=== PATIENT | female | born 1970 | race Caucasian/White ===

== ENCOUNTER 2024-01-29 15:37 | Inpatient (IN) ==
[2024-01-29 16:37] LABS: Appearance Urine Clear (Clear); Bacteria Urine Automated None Seen (None Seen); Basophils # (auto) 0.05 K/uL (0.00-0.20); Basophils % (auto) 0.8 %; Bilirubin Urine Negative (Negative); Blood Urine Trace (Negative); Cast Urine Automated 0-2 /lpf (0-2); Color Urine Yellow; Eosinophils % (auto) 1.5 %; Epithelial Cell Urine Auto 0-2 /hpf (0-2); Glucose Urine UA Negative (Negative); Hematocrit (blood only) 46.9 % (37.0-47.0); Hemoglobin 15.9 g/dl (12.0-16.0); Immature Granulocytes # (auto) 0.01 K/uL (0.01-0.20); Immature Granulocytes % (auto) 0.2 %; Ketones Urine Negative (Negative); Leukocyte Esterase Urine Negative (Negative); Lymphocytes # (auto) 2.25 K/uL (1.20-3.40); Lymphocytes % (auto) 34.8 %; Mean Corpuscular Hemoglobin 30.7 pg (25.0-34.0); Mean Corpuscular Hgb Conc 33.9 g/dL (32.0-36.0); Mean Corpuscular Volume 90.5 fL (80.0-100.0); Mean Platelet Volume 10.5 fL (9.4-12.4); Monocytes # (auto) 0.32 K/uL (0.11-0.59); Monocytes % (auto) 4.9 %; Neutrophils # (auto) 3.74 K/uL (1.40-6.50); Neutrophils % (auto) 57.8 %; Nitrite Urine Negative (Negative); Platelet Count 340 K/uL (130-400); Protein Urine Negative (Negative); RBC Urine Automated 0-2 /hpf (0-2); RDW Coefficient of Variation 13.1 % (11.5-14.5); RDW Standard Deviation 43.8 fL (36.4-46.3); Red Blood Count 5.18 M/uL (4.20-5.40); Specific Gravity Urine 1.006 (1.000-1.030); Urobilinogen Urine Negative (Negative); WBC Urine Automated 0-5 /hpf (0-5); White Blood Count 6.47 K/ul (4.8-10.8); pH Urine 6.5 (4.5-7.5)
[2024-01-29] MEDS: MECLIZINE HCL 25 MG TAB PO STA (16:37)
[2024-01-29] MEDS: SODIUM CHLORIDE 0.9% 1,000 ML IV ONE (16:37)
[2024-01-29] MEDS: ONDANSETRON INJ 2 MG/ML 2 ML VIAL IV STA (16:37)
--- NOTE | 2024-01-29 16:38 | Emergency Department Note ---
Impression & Plan Dizziness, Weakness, Bradycardia ED Provider Note NAME: LILA MCCULLOUGH AGE: 53 SEX: F : 1970 ARRIVES VIA: Walk-In INFORMANT: [Patient] ED PROVIDER(S): [Deven Hoffman MD] CHIEF COMPLAINT: Dizziness HISTORY OF PRESENT ILLNESS: The patient is a 53-year-old female who has been in the ED recently for gastritis and esophagitis. She has felt dizzy for months, it seems to come and go. It is more of a lightheadedness than vertigo. She has noticed some occasional nausea, some hot and cold sensations, no vomiting. She had some diarrhea a few days ago but nothing has been persistent. She does feel diffusely weak, it is not a one-sided weakness. There has been no speech slur. The patient is currently wearing a heart monitor for bradycardia. The patient states that she was at her neurologist today. She was referred to the ER for a stroke workup. PMHx/PSHx/Social Hx: See Below PHYSICAL EXAM: GENERAL: Patient is in no acute distress. HEENT: No acute trauma, normocephalic atraumatic, mucous membranes moist, no nasal congestion. NECK: No stridor, no adenopathy, no meningismus, trachea is midline. LUNGS: Clear to auscultation bilaterally, no wheeze, no rhonchi, breath sounds equal. HEART: Without murmurs gallops or rubs, regular rate and rhythm. ABDOMEN: Soft, nontender, no peritonitis. EXTREMITIES: No cyanosis, full range of motion of all the joints without pain or difficulty. NEUROLOGIC: Oriented x 3, no acute motor or sensory deficits, no focal weakness. No speech slur or facial droop, no extremity drift. Excellent historian. SKIN: No jaundice, no diaphoresis. DIFFERENTIAL DIAGNOSIS: Dehydration, vertigo, anemia, electrolyte imbalance, TIA, CVA, UTI, among others. EMERGENCY DEPARTMENT PROCEDURES: MEDICAL DECISION MAKING: There is no leukocytosis or concerning anemia. There is a normal platelet count. No coagulopathy. No renal failure or significant electrolyte abnormality. No concerning liver enzyme elevation. ECG showed a sinus bradycardia, no dysrhythmia. Cardiac enzyme testing x 1 was not consistent with acute cardiac injury. Urinalysis did not show findings of infection. Brain CT showed no acute bleed or mass effect. A mastoid effusion was seen. CT angio of the head and neck did not show stenosis or clot. On exam, patient had no focal neurologic findings. She was bradycardic on cardiac monitoring. The patient received IV saline, she was given IV Zofran. She eventually received IV morphine for pain. She was given oral meclizine to see if this helped with some of her dizziness. She was given IV Tylenol. The patient presents with persistent dizziness. There was concern for a posterior circulation stroke as the cause for her trouble. She has been notably bradycardic and certainly, dysrhythmia could be causing her dizziness. With all of the issues, complaints and findings, I do think further workup in the hospital would be warranted. An MRI would be beneficial to further rule out CVA. Further cardiac monitoring would be helpful to rule out dysrhythmia. I did speak with the patient and case management, the on-call hospitalist was consulted. Prior/Outside records/notes reviewed: Previous ED visit notes describing her workup, findings and plan outpatient. ECG per my interpretation: Indication was possible CVA. The ECG shows a sinus bradycardia with a rate of 56. There is no acute ST elevation, no PVCs. The QTc is 405. Continuous Cardiac Monitoring per my interpretation: An order was placed for continuous cardiac monitoring. The monitor shows a rate of 55 with sinus bradycardia. Imaging/x-ray results per my interpretation: Chronic Medical/Social conditions affecting care: None Care/Management discussed with: Case management, the on-call hospitalist. Level of care consideration(s): After review of the information above and other included data: --I believe the patient requires escalation of care to admission DISPOSITION: Admission Past Med/Surg History Problem List (Updated 01/29/24 @ 22:43 by Deven Hoffman MD) Bradycardia (Acute) Weakness (Acute) Dizziness (Acute) Dizziness Dysphagia Constipation Abnormal CT of the abdomen Acute epigastric pain (Acute) Heart burn (Acute) Gastritis (Acute) Elevated serum hCG in female, not (Acute) Medical History Nausea after anesthesia Anxiety recently had chest pain end 07/2023, checked by and "no findings" GERD (gastroesophageal reflux disease) Surgical History Hx of hysterectomy 2011 Hx of colonoscopy Status post myringotomy with tube placement of both ears Hx of tonsillectomy Social History Smoking Status: Current every day smoker Tobacco Type: Cigarettes Cigarettes Per Day: 20/day; Second Hand Exposure: Yes; Do You Dip or Chew Tobacco: No; Tobacco Cessation Education Requested by Patient: No Hx Alcohol Use: No Hx Substance Use: No Preferred Language: Armenian Communication Ability: Effective End Polisher Required: No Beliefs That Will Affect Care: None Current Living Situation: Spouse and Family Other Information That Helps Us Care for You: No Feels Safe at Home: Yes Safety Concerns: Feels Safe At This Time Assistive Devices: Glasses Allergies Allergies Allergy/AdvReac Type Severity Reaction Status Date / Time No Known Allergies Allergy Verified 01/29/24 18:50 Home Meds Home Medications Medication Instructions Recorded Confirmed famotidine 40 mg tablet 40 mg PO BID PRN 12/12/23 01/29/24 HEARTBURN/INDIGESTION diazepam 5 mg tablet 2.5 mg PO BID PRN Anxiety 01/29/24 01/29/24 hydroxyzine HCl 10 mg tablet 10 mg PO Q6 PRN Anxiety 01/29/24 01/29/24 omeprazole 40 mg capsule,delayed 40 mg PO DAILY 01/29/24 01/29/24 release Results & Data (ED) Vital Signs Vital Signs - 24 hr 01/29/24 15:41 01/29/24 16:19 01/29/24 16:29 Temperature 36.3 C L Temperature Source Temporal Artery Scan Pulse Rate - Lying 60 Pulse Rate - Sitting 78 Pulse Rate - Standing 90 Pulse Rate 77 55 L Pulse Rate [Finger] Pulse Rhythm Regular Pulse Strength Normal Respiratory Rate 20 Respiratory Effort / Characteristics Non-Labored Spontaneous Respiratory Depth Normal Blood Pressure - Lying 154/93 H Blood Pressure - Sitting 158/86 H Blood Pressure- Standing 135/95 Blood Pressure 168/94 H Blood Pressure [Right Arm] Blood Pressure Mean 118 Blood Pressure Mean [Right Arm] Blood Pressure Position Sitting Pulse Oximetry 99 Oxygen Delivery Method Room Air Sepsis Recent Fever Within 48 Hours No Sepsis New/Unexplained Change in Mental Status N/A Sepsis Action Taken by Nursing No Action Required 01/29/24 17:00 01/29/24 19:00 Temperature Temperature Source Pulse Rate - Lying Pulse Rate - Sitting Pulse Rate - Standing Pulse Rate Pulse Rate [Finger] 56 L 75 Pulse Rhythm Pulse Strength Respiratory Rate 18 20 Respiratory Effort / Characteristics Respiratory Depth Blood Pressure - Lying Blood Pressure - Sitting Blood Pressure- Standing Blood Pressure Blood Pressure [Right Arm] 137/82 129/89 Blood Pressure Mean Blood Pressure Mean [Right Arm] 100 102 Blood Pressure Position Pulse Oximetry 98 95 Oxygen Delivery Method Room Air Room Air Sepsis Recent Fever Within 48 Hours Sepsis New/Unexplained Change in Mental Status Sepsis Action Taken by [facility] Medications Current Medication List: was personally reviewed by me Laboratory Data Attestation: I reviewed the patient's lab results. 01/29/24 16:00 01/29/24 16:00 Lab Results 01/29/24 Range/Units 16:00 WBC 6.47 (4.8-10.8) K/ul RBC 5.18 (4.20-5.40) M/uL Hgb 15.9 (12.0-16.0) g/dl Hct 46.9 (37.0-47.0) % MCV 90.5 (80.0-100.0) fL MCH 30.7 (25.0-34.0) pg MCHC 33.9 (32.0-36.0) g/dL RDW Std Deviation 43.8 (36.4-46.3) fL RDW Coeff of Rosita 13.1 (11.5-14.5) % Plt Count 340 (130-400) K/uL MPV 10.5 (9.4-12.4) fL Immature Gran % (Auto) 0.2 % Neut % (Auto) 57.8 % Lymph % (Auto) 34.8 % [place] % (Auto) 4.9 % Eos % (Auto) 1.5 % Baso % (Auto) 0.8 % Neut # (Auto) 3.74 (1.40-6.50) K/uL Lymph # (Auto) 2.25 (1.20-3.40) K/uL [place] # (Auto) 0.32 (0.11-0.59) K/uL Eos # (Auto) 0.10 (0.00-0.50) K/uL Baso # (Auto) 0.05 (0.00-0.20) K/uL Immature Gran # (Auto) 0.01 (0.01-0.20) K/uL PT 10.9 (9.0-12.0) Seconds INR 1.0 (0.9-1.1) APTT 29 (21-31) Seconds PTT Ratio 1.1 Sodium 139 (136-145) mmol/L Potassium 3.7 (3.5-5.1) mmol/L Chloride 103 (98-107) mmol/L Carbon Dioxide 27 (21-32) mmol/L Anion Gap 9 (3-11) BUN 8 (6-23) mg/dl Creatinine 0.83 (0.6-1.2) mg/dl Est Cr Clr Drug Dosing 73.1 ml/min Est GFR ( Amer) 92.7 ml/min Est GFR (Non-Af Amer) 79.9 ml/min BUN/Creatinine Ratio 9.6 L (10-20) Glucose 96 (70-99(Fasting)) mg/dl Calcium 10.3 (8.6-10.3) mg/dl Magnesium 2.1 (1.7-2.4) mg/dl Total Bilirubin 0.5 (0.2-1.0) mg/dl AST 18 (13-39) U/L ALT 15 (7-52) U/L Alkaline Phosphatase 81 (34-104) U/L Troponin I High Sens 4.3 (0-14) pg/ml Total Protein 8.0 (6.0-8.3) gm/dl Albumin 4.9 (3.4-5.0) gm/dl Globulin 3.1 (2.5-4.0) gm/dl Albumin/Globulin Ratio 1.6 (0.9-2) Urine Color Yellow Urine Appearance Clear (Clear) Urine pH 6.5 (4.5-7.5) Ur Specific [place] 1.006 (1.000-1.030) Urine Protein Negative (Negative) Urine Glucose (UA) Negative (Negative) Urine Ketones Negative (Negative) Urine Blood Trace H (Negative) Urine Nitrite Negative (Negative) Urine Bilirubin Negative (Negative) Urine Urobilinogen Negative (Negative) Ur Leukocyte Esterase Negative (Negative) Urine WBC (Auto) 0-5 (0-5) /hpf Urine RBC (Auto) 0-2 (0-2) /hpf U Hyaline Cast (Auto) 0-2 (0-2) /lpf U Epithel Cells (Auto) 0-2 (0-2) /hpf Urine Bacteria (Auto) None Seen (None Seen) Lyme Disease Screen Negative (Negative) Administered Medications Heparin Sodium (Porcine) (Heparin Sod 5,000 Unit/0.5 Ml Vial) 5,000 units SQ Q8 KIRSTEN Stop: 02/28/24 21:59 Last Admin: 01/29/24 22:36 Dose: 5,000 units Documented By: ALMA Sodium Chloride (Nss) 1,000 mls @ 80 mls/hr IV .[id number] KIRSTEN Stop: 01/30/24 09:10 Last Admin: 01/29/24 22:30 Dose: 80 mls/hr Documented By: ALMA Discontinued Medications Sodium Chloride (Nss) 1,000 mls @ 999 mls/hr IV .[id number] ONE Stop: 01/29/24 17:24 Last Infusion: 01/29/24 19:25 Dose: Infused Documented By: Admin: 01/29/24 16:37 Dose: 999 mls/hr Documented By: JANETTE Acetaminophen (Ofirmev) 1,000 mg in 100 mls @ 400 mls/hr IV NOW STA Stop: 01/29/24 19:39 Last Infusion: 01/29/24 20:07 Dose: Infused Documented By: Admin: 01/29/24 19:47 Dose: 400 mls/hr Documented By: JANETTE Ioversol (Optiray 320 125ml) 106 ml IV ONCE ONE Stop: 01/29/24 17:25 Last Admin: 01/29/24 17:24 Dose: 106 ml Documented By: SARA Meclizine HCl (Meclizine Hcl 25 Mg Tab) 25 mg PO NOW STA Stop: 01/29/24 16:25 Last Admin: 01/29/24 16:37 Dose: 25 mg Documented By: JANETTE Morphine Sulfate (Morphine Sulfate 2 Mg/Ml Carp) 2 mg IV NOW STA Stop: 01/29/24 19:26 Last Admin: 01/29/24 20:40 Dose: Not Given Documented By: ALMA Ondansetron HCl (Ondansetron Inj 2 Mg/Ml 2 Ml Vial) 4 mg IV NOW STA Stop: 01/29/24 16:25 Last Admin: 01/29/24 16:37 Dose: 4 mg Documented By: JANETTE Imaging Data Radiologist's Impression: Head CT 01/29/24 16:[address] DOSE: HISTORY: Dizziness. neuro deficit, acute stroke suspected TECHNIQUE: Multiaxial CT images of the head were performed without the use of intravenous contrast. Automated exposure control was utilized for this study. A dose lowering technique was utilized adhering to the principles of ALARA. Comparison: Head CT 01/01/2024. Findings: Stable chronic right mastoid effusion. The paranasal sinuses and left mastoid air cells are clear. The calvarium and skull base are intact. The ventricles and sulci are within normal limits. There is no mass, hematoma, midline shift, or acute infarct. Impression: No acute intracranial abnormality. Stable chronic right mastoid effusion. ACT 112: Negative or not required by law. Electronically signed by: Zafar March M.D. 01/29/2024 6:02 PM Head CTA 01/29/24 16:24 HEAD & NECK CTA HISTORY: Dizziness neuro deficit, acute stroke suspected TECHNIQUE: Multiaxial CT images of the head were performed following the intravenous administration of contrast to evaluate the major cerebral vessels. Multiaxial CT images of the neck were also performed following the intravenous administration of contrast to evaluate the major cervical vessels. 3D/MIP images were also obtained. Sagittal and coronal reformats were reviewed. A dose lowering technique was utilized adhering to the principles of ALARA. COMPARISON: Head CT 01/29/2024. CT neck 10/08/2023. FINDINGS: There is no mass, hematoma, midline shift, or acute infarct. Visualized intracranial internal carotid arteries, distal vertebral arteries, and basilar artery are widely patent. There is no significant stenosis, occlusion, or aneurysm seen within the bilateral ACAs, MCAs, or incident response manager. . The major dural venous sinuses are patent. The aortic arch and proximal great vessels are widely patent. There is no significant stenosis, occlusion, or dissection identified within the bilateral common carotid, internal carotid, or vertebral arteries. Stable 4.8 cm cystic structure within the right superior mediastinum. IMPRESSION: 1. No significant stenosis, occlusion, or aneurysm within the [place]. 2. No significant stenosis, occlusion, or dissection identified within the carotid or vertebral arteries.. 3. Stable 4.8 cm cystic structure within the right superior mediastinum. ACT 112: Negative or not required by law. Electronically signed by: Zafar March M.D. 01/29/2024 6:10 PM Neck CTA 01/29/24 16:24 HEAD & NECK CTA HISTORY: Dizziness neuro deficit, acute stroke suspected TECHNIQUE: Multiaxial CT images of the head were performed following the intravenous administration of contrast to evaluate the major cerebral vessels. Multiaxial CT images of the neck were also performed following the intravenous administration of contrast to evaluate the major cervical vessels. 3D/MIP images were also obtained. Sagittal and coronal reformats were reviewed. A dose lowering technique was utilized adhering to the principles of ALARA. COMPARISON: Head CT 01/29/2024. CT neck 10/08/2023. FINDINGS: There is no mass, hematoma, midline shift, or acute infarct. Visualized intracranial internal carotid arteries, distal vertebral arteries, and basilar artery are widely patent. There is no significant stenosis, occlusion, or aneurysm seen within the bilateral ACAs, MCAs, or incident response manager. . The major dural venous sinuses are patent. The aortic arch and proximal great vessels are widely patent. There is no significant stenosis, occlusion, or dissection identified within the bilateral common carotid, internal carotid, or vertebral arteries. Stable 4.8 cm cystic structure within the right superior mediastinum. IMPRESSION: 1. No significant stenosis, occlusion, or aneurysm within the [place]. 2. No significant stenosis, occlusion, or dissection identified within the carotid or vertebral arteries.. 3. Stable 4.8 cm cystic structure within the right superior mediastinum. ACT 112: Negative or not required by law. Electronically signed by: Zafar March M.D. 01/29/2024 6:10 PM Discharge Plan Visit Data Chief Complaint: Dizziness Stated Complaint: DIZZY, NECK PAIN, TEMP ISSUES, WEAK, REF BY DOC ED Provider: Deven Hoffman Discharge Problem: Dizziness, Weakness, Bradycardia Patient Disposition: Admitted As Inpatient Condition: Fair Discharge Instructions Interventions: ED Discharge Assessment Last Done: 01/29/24 20:05
[2024-01-29 16:57] LABS: Albumin Globulin Ratio 1.6 (0.9-2); Albumin Level 4.9 gm/dl (3.4-5.0); BUN Creatinine Ratio 9.6 (10-20); Bilirubin,Total 0.5 mg/dl (0.2-1.0); Calcium 10.3 mg/dl (8.6-10.3); Creatinine Clr Calc Pharmacy 73.1 ml/min; Est GFR (African American) 92.7 ml/min; Est GFR (Non-African American) 79.9 ml/min; Globulin 3.1 gm/dl (2.5-4.0); Magnesium 2.1 mg/dl (1.7-2.4); Potassium 3.7 mmol/L (3.5-5.1)
[2024-01-29 17:03] LABS: Troponin I High Sensitivity 4.3 pg/ml (0-14)
[2024-01-29] MEDS: OPTIRAY 320 125ml IV ONE (17:24)
[2024-01-29 17:44] LABS: Partial Thromboplastin Ratio 1.1; Partial Thromboplastin Time 29 Seconds (21-31); Prothrombin Time 10.9 Seconds (9.0-12.0)
--- NOTE | 2024-01-29 18:04 | CT Scan Report ---
HEAD CT NONCONTRAST CT DOSE: HISTORY: Dizziness. neuro deficit, acute stroke suspected TECHNIQUE: Multiaxial CT images of the head were performed without the use of intravenous contrast. A utomated exposure control was utilized for this study. A dose lowering technique was utilized adheri ng to the principles of ALARA. Comparison: Head CT 01/01/2024. Findings: Stable chronic right mastoid effusion. The paranasal sinuses and left mastoid air cells are clear. The calvarium and skull base are intact. The ventricles and sulci are within normal limits. T here is no mass, hematoma, midline shift, or acute infarct. Impression: No acute intracranial abnormality. Stable chronic right mastoid effusion. ACT 112: Negative or not required by law. Electronically signed by: Zafar March M.D. 01/29/2024 6:02 PM
--- NOTE | 2024-01-29 18:12 | CT Scan Report ---
HEAD & NECK CTA HISTORY: Dizziness neuro deficit, acute stroke suspected TECHNIQUE: Multiaxial CT images of the head were performed following the intravenous administration o f contrast to evaluate the major cerebral vessels. Multiaxial CT images of the neck were also perform ed following the intravenous administration of contrast to evaluate the major cervical vessels. 3D/PR P images were also obtained. Sagittal and coronal reformats were reviewed. A dose lowering technique was utilized adhering to the principles of ALARA. COMPARISON: Head CT 01/29/2024. CT neck 10/08/2023. FINDINGS: There is no mass, hematoma, midline shift, or acute infarct. Visualized intracranial internal carotid arteries, distal vertebral arteries, and basilar artery are widely patent. There is no significant s tenosis, occlusion, or aneurysm seen within the bilateral ACAs, MCAs, or director of trauma. . The major dural veno us sinuses are patent. The aortic arch and proximal great vessels are widely patent. There is no significant stenosis, occ lusion, or dissection identified within the bilateral common carotid, internal carotid, or vertebral arteries. Stable 4.8 cm cystic structure within the right superior mediastinum. IMPRESSION: 1. No significant stenosis, occlusion, or aneurysm within the [place]. 2. No significant stenosis, occlusion, or dissection identified within the carotid or vertebral arter ies.. 3. Stable 4.8 cm cystic structure within the right superior mediastinum. ACT 112: Negative or not required by law. Electronically signed by: Zafar March M.D. 01/29/2024 6:10 PM
--- NOTE | 2024-01-29 18:12 | CT Scan Report ---
HEAD & NECK CTA HISTORY: Dizziness neuro deficit, acute stroke suspected TECHNIQUE: Multiaxial CT images of the head were performed following the intravenous administration o f contrast to evaluate the major cerebral vessels. Multiaxial CT images of the neck were also perform ed following the intravenous administration of contrast to evaluate the major cervical vessels. 3D/DE P images were also obtained. Sagittal and coronal reformats were reviewed. A dose lowering technique was utilized adhering to the principles of ALARA. COMPARISON: Head CT 01/29/2024. CT neck 10/08/2023. FINDINGS: There is no mass, hematoma, midline shift, or acute infarct. Visualized intracranial internal carotid arteries, distal vertebral arteries, and basilar artery are widely patent. There is no significant s tenosis, occlusion, or aneurysm seen within the bilateral ACAs, MCAs, or laborer car barn. . The major dural veno us sinuses are patent. The aortic arch and proximal great vessels are widely patent. There is no significant stenosis, occ lusion, or dissection identified within the bilateral common carotid, internal carotid, or vertebral arteries. Stable 4.8 cm cystic structure within the right superior mediastinum. IMPRESSION: 1. No significant stenosis, occlusion, or aneurysm within the [place]. 2. No significant stenosis, occlusion, or dissection identified within the carotid or vertebral arter ies.. 3. Stable 4.8 cm cystic structure within the right superior mediastinum. ACT 112: Negative or not required by law. Electronically signed by: Zafar March M.D. 01/29/2024 6:10 PM
[2024-01-29] MEDS: ACETAMINOPHEN 1,000 MG/100 ML VIAL IV STA (19:47)
[2024-01-29] MEDS: MoRPHine SULFATE 2 MG/ML CARP IV STA (20:40)
[2024-01-29] MEDS ORDERED: PHARMACIST DISCHARGE MED REC CONSULT PRN (20:41)
[2024-01-29] MEDS ORDERED: POLYETHYLENE (MIRALAX) 17 GM PACK PO PRN (20:41)
--- NOTE | 2024-01-29 21:51 | History & Physical Report ---
Date of Service January 29, 2024 Assessment & Plan (1) Dizziness: Plan: 53-year-old female with past medical significant for bradycardia, mediastinal mass, GERD, colitis, chronic gastritis, squamous cell carcinoma face, neck pain, tobacco use, generalized anxiety disorder, ongoing dizziness was seen by neurology today and was advised for stroke workup. Patient states she is having on and off dizziness since last July. And also seeing some black spots on the right peripheral vision for several weeks. On and off headaches. Today headache is somewhat more severe. Has some nausea. Lost about 40 pounds in the last several months. Ambulates okay. No fevers. No runny nose or sore throat. States left ear has fluid. Has heartburn symptoms. Seems CT scan done recently showed colitis and was seen by GI few days back. GI is planning to do EGD and colonoscopy. Currently no abdominal pain. She had diarrhea but that got resolved today. No blood in the stools. Normal bladder movements. She also noted to have bradycardia and she has Zio patch placed. She also feeling hot and cold symptoms. Has chronic neck pain. Today she felt [id number] in left shoulder and left arm. Dizziness On and off going on for several months Saw neurology today recommended stroke workup and also possible LP CT head and CTA head and neck unremarkable MRI brain ordered Neurochecks Speech evaluation PT OT Telemetry Neuroconsulted and further recommendations Bradycardia Patient has Zio patch on which patient took off for MRI Will follow echo Will follow Lyme screen Telemetry Cardiology consult in a.m. Colitis Weight loss Plan for EGD and colonoscopy per GI Right mastoid effusion Will consult ENT Gastritis On omeprazole. Anxiety Diazepam as needed. Visual disturbance right eye peripheral vison MRI scan ok followup Neck pain Mri cervical spine Mild degenerative changes DVT prophylaxis Heparin subcu Disposition Telemetry Full code. Admission and Anticipated Discharge Date Admission Date: January 29, 2024 History of Present Illness Chief Complaint: Dizziness Primary Care Provider: MELANIE Angel 53-year-old female with past medical significant for bradycardia, mediastinal mass, GERD, colitis, chronic gastritis, squamous cell carcinoma face, neck pain, tobacco use, generalized anxiety disorder, ongoing dizziness was seen by neurology today and was advised for stroke workup. Patient states she is having on and off dizziness since last July. And also seeing some black spots on the right peripheral vision for several weeks. On and off headaches. Today headache is somewhat more severe. Has some nausea. Lost about 40 pounds in the last several months. Ambulates okay. No fevers. No runny nose or sore throat. States right ear has fluid. Has heartburn symptoms. Seems CT scan done recently showed colitis and was seen by GI few days back. GI is planning to do EGD and colonoscopy. Currently no abdominal pain. She had diarrhea but that got resolved today. No blood in the stools. Normal bladder movements. She also noted to have bradycardia and she has Zio patch placed. She also feeling hot and cold symptoms. Has chronic neck pain. Today she felt avuc-ofl-hecperl in left shoulder and left arm. Past medical history. As mentioned above. Past surgical history. Vaginal hysterectomy. Social history. . Smokes 0.8 packs a day for last 39 years no alcohol's. No drug use currently. Family history. Maternal grandfather had stroke. Mother had stroke. Allergies Allergy/AdvReac Type Severity Reaction Status Date / Time No Known Allergies Allergy Verified 01/29/24 18:50 Home Medications Medication Instructions Recorded Confirmed Type famotidine 40 mg tablet 40 mg PO BID PRN 12/12/23 01/29/24 History HEARTBURN/INDIGESTION diazepam 5 mg tablet 2.5 mg PO BID PRN Anxiety 01/29/24 01/29/24 History hydroxyzine HCl 10 mg tablet 10 mg PO Q6 PRN Anxiety 01/29/24 01/29/24 History omeprazole 40 mg capsule,delayed 40 mg PO DAILY 01/29/24 01/29/24 History release Past Med/Surg History Problem List (Updated 01/29/24 @ 22:43 by Deven Hoffman MD) Bradycardia (Acute) Weakness (Acute) Dizziness (Acute) Dizziness Dysphagia Constipation Abnormal CT of the abdomen Acute epigastric pain (Acute) Heart burn (Acute) Gastritis (Acute) Elevated serum hCG in female, not (Acute) Medical History Nausea after anesthesia Anxiety recently had chest pain end 07/2023, checked by and "no findings" GERD (gastroesophageal reflux disease) Surgical History Hx of hysterectomy 2011 Hx of colonoscopy Status post myringotomy with tube placement of both ears Hx of tonsillectomy Social History Smoking Status: Current every day smoker Tobacco Type: Cigarettes Cigarettes Per Day: 20/day; Second Hand Exposure: Yes; Do You Dip or Chew Tobacco: No; Tobacco Cessation Education Requested by Patient: No Hx Alcohol Use: No Hx Substance Use: No Preferred Language: [place] Communication Ability: Effective Plush Weaver Required: No Beliefs That Will Affect Care: None Current Living Situation: Spouse and Family Other Information That Helps Us Care for You: No Feels Safe at Home: Yes Safety Concerns: Feels Safe At This Time Assistive Devices: Glasses Review of Systems Review of Systems: All systems reviewed & are unremarkable except as noted in HPI & below Physical Exam Physical Exam: General-Not in distress Head- atraumatic Eyes- PERRL, EOMI, anicteric ENT- oropharynx clear Neck- supple, no JVD Lungs- clear to auscultation no wheezing or crackles Heart- regular rhythm bradycardia ; no murmur. Abdomen- normal bowel sounds, soft, nontender, no distension Extremities- pretibial edema present, no obvious erythema seen. Neuro- alert, oriented PERRL,no facial palsy; no dysarthria; motor 5/5 bilaterally; no pronator drift, co ordination of movements normal, sensations and position sense intact. Skin- warm & dry Results & Data Results & Data Vital Signs (Past 12 Hours) Vital Signs Temp Pulse Pulse Resp BP BP Pulse Ox 01/29/24 20:44 36.8 C 50 L 18 136/79 98 01/29/24 19:00 75 20 129/89 95 01/29/24 17:00 56 L 18 137/82 98 01/29/24 16:19 55 L 01/29/24 15:41 36.3 C L 77 20 168/94 H 99 O2 Del Method 01/29/24 20:44 Room Air 01/29/24 19:00 Room Air 01/29/24 17:00 Room Air 01/29/24 16:19 01/29/24 15:41 Room Air Diagnostic Findings Laboratory Results WBC 6.47 K/ul (4.8-10.8) 01/29/24 16:00 RBC 5.18 M/uL (4.20-5.40) 01/29/24 16:00 Hgb 15.9 g/dl (12.0-16.0) 01/29/24 16:00 Hct 46.9 % (37.0-47.0) 01/29/24 16:00 MCV 90.5 fL (80.0-100.0) 01/29/24 16:00 MCH 30.7 pg (25.0-34.0) 01/29/24 16:00 MCHC 33.9 g/dL (32.0-36.0) 01/29/24 16:00 RDW Std Deviation 43.8 fL (36.4-46.3) 01/29/24 16:00 RDW Coeff of Rosita 13.1 % (11.5-14.5) 01/29/24 16:00 Plt Count 340 K/uL (130-400) 01/29/24 16:00 MPV 10.5 fL (9.4-12.4) 01/29/24 16:00 Immature Gran % (Auto) 0.2 % 01/29/24 16:00 Neut % (Auto) 57.8 % 01/29/24 16:00 Lymph % (Auto) 34.8 % 01/29/24 16:00 [place] % (Auto) 4.9 % 01/29/24 16:00 Eos % (Auto) 1.5 % 01/29/24 16:00 Baso % (Auto) 0.8 % 01/29/24 16:00 Neut # (Auto) 3.74 K/uL (1.40-6.50) 01/29/24 16:00 Lymph # (Auto) 2.25 K/uL (1.20-3.40) 01/29/24 16:00 [place] # (Auto) 0.32 K/uL (0.11-0.59) 01/29/24 16:00 Eos # (Auto) 0.10 K/uL (0.00-0.50) 01/29/24 16:00 Baso # (Auto) 0.05 K/uL (0.00-0.20) 01/29/24 16:00 Immature Gran # (Auto) 0.01 K/uL (0.01-0.20) 01/29/24 16:00 PT 10.9 Seconds (9.0-12.0) 01/29/24 16:00 INR 1.0 (0.9-1.1) 01/29/24 16:00 APTT 29 Seconds (21-31) 01/29/24 16:00 PTT Ratio 1.1 01/29/24 16:00 Sodium 139 mmol/L (136-145) 01/29/24 16:00 Potassium 3.7 mmol/L (3.5-5.1) 01/29/24 16:00 Chloride 103 mmol/L (98-107) 01/29/24 16:00 Carbon Dioxide 27 mmol/L (21-32) 01/29/24 16:00 Anion Gap 9 (3-11) 01/29/24 16:00 BUN 8 mg/dl (6-23) 01/29/24 16:00 Creatinine 0.83 mg/dl (0.6-1.2) 01/29/24 16:00 Est Cr Clr Drug Dosing 73.1 ml/min 01/29/24 16:00 Est GFR ( Amer) 92.7 ml/min 01/29/24 16:00 Est GFR (Non-Af Amer) 79.9 ml/min 01/29/24 16:00 BUN/Creatinine Ratio 9.6 (10-20) L 01/29/24 16:00 Glucose 96 mg/dl (70-99(Fasting)) 01/29/24 16:00 Calcium 10.3 mg/dl (8.6-10.3) 01/29/24 16:00 Magnesium 2.1 mg/dl (1.7-2.4) 01/29/24 16:00 Total Bilirubin 0.5 mg/dl (0.2-1.0) 01/29/24 16:00 AST 18 U/L (13-39) 01/29/24 16:00 ALT 15 U/L (7-52) 01/29/24 16:00 Alkaline Phosphatase 81 U/L (34-104) 01/29/24 16:00 Troponin I High Sens 4.3 pg/ml (0-14) 01/29/24 16:00 Total Protein 8.0 gm/dl (6.0-8.3) 01/29/24 16:00 Albumin 4.9 gm/dl (3.4-5.0) 01/29/24 16:00 Globulin 3.1 gm/dl (2.5-4.0) 01/29/24 16:00 Albumin/Globulin Ratio 1.6 (0.9-2) 01/29/24 16:00 Urine Color Yellow 01/29/24 16:00 Urine Appearance Clear (Clear) 01/29/24 16:00 Urine pH 6.5 (4.5-7.5) 01/29/24 16:00 Ur Specific [place] 1.006 (1.000-1.030) 01/29/24 16:00 Urine Protein Negative (Negative) 01/29/24 16:00 Urine Glucose (UA) Negative (Negative) 01/29/24 16:00 Urine Ketones Negative (Negative) 01/29/24 16:00 Urine Blood Trace (Negative) H 01/29/24 16:00 Urine Nitrite Negative (Negative) 01/29/24 16:00 Urine Bilirubin Negative (Negative) 01/29/24 16:00 Urine Urobilinogen Negative (Negative) 01/29/24 16:00 Ur Leukocyte Esterase Negative (Negative) 01/29/24 16:00 Urine WBC (Auto) 0-5 /hpf (0-5) 01/29/24 16:00 Urine RBC (Auto) 0-2 /hpf (0-2) 01/29/24 16:00 U Hyaline Cast (Auto) 0-2 /lpf (0-2) 01/29/24 16:00 U Epithel Cells (Auto) 0-2 /hpf (0-2) 01/29/24 16:00 Urine Bacteria (Auto) None Seen (None Seen) 01/29/24 16:00 Lyme Disease Screen Negative (Negative) 01/29/24 16:[address] 01/29/24 16:[address] DOSE: HISTORY: Dizziness. neuro deficit, acute stroke suspected TECHNIQUE: Multiaxial CT images of the head were performed without the use of intravenous contrast. Automated exposure control was utilized for this study. A dose lowering technique was utilized adhering to the principles of ALARA. Comparison: Head CT 01/01/2024. Findings: Stable chronic right mastoid effusion. The paranasal sinuses and left mastoid air cells are clear. The calvarium and skull base are intact. The ventricles and sulci are within normal limits. There is no mass, hematoma, midline shift, or acute infarct. Impression: No acute intracranial abnormality. Stable chronic right mastoid effusion. ACT 112: Negative or not required by law. Electronically signed by: Zafar March M.D. 01/29/2024 6:02 PM Head CTA 01/29/24 16:24 HEAD & NECK CTA HISTORY: Dizziness neuro deficit, acute stroke suspected TECHNIQUE: Multiaxial CT images of the head were performed following the intravenous administration of contrast to evaluate the major cerebral vessels. Multiaxial CT images of the neck were also performed following the intravenous administration of contrast to evaluate the major cervical vessels. 3D/MIP images were also obtained. Sagittal and coronal reformats were reviewed. A dose lowering technique was utilized adhering to the principles of ALARA. COMPARISON: Head CT 01/29/2024. CT neck 10/08/2023. FINDINGS: There is no mass, hematoma, midline shift, or acute infarct. Visualized intracranial internal carotid arteries, distal vertebral arteries, and basilar artery are widely patent. There is no significant stenosis, occlusion, or aneurysm seen within the bilateral ACAs, MCAs, or bakery decorator. . The major dural venous sinuses are patent. The aortic arch and proximal great vessels are widely patent. There is no significant stenosis, occlusion, or dissection identified within the bilateral common carotid, internal carotid, or vertebral arteries. Stable 4.8 cm cystic structure within the right superior mediastinum. IMPRESSION: 1. No significant stenosis, occlusion, or aneurysm within the [place]. 2. No significant stenosis, occlusion, or dissection identified within the carotid or vertebral arteries.. 3. Stable 4.8 cm cystic structure within the right superior mediastinum. ACT 112: Negative or not required by law. Electronically signed by: Zafar March M.D. 01/29/2024 6:10 PM Neck CTA 01/29/24 16:24 HEAD & NECK CTA HISTORY: Dizziness neuro deficit, acute stroke suspected TECHNIQUE: Multiaxial CT images of the head were performed following the intravenous administration of contrast to evaluate the major cerebral vessels. Multiaxial CT images of the neck were also performed following the intravenous administration of contrast to evaluate the major cervical vessels. 3D/MIP images were also obtained. Sagittal and coronal reformats were reviewed. A dose lowering technique was utilized adhering to the principles of ALARA. COMPARISON: Head CT 01/29/2024. CT neck 10/08/2023. FINDINGS: There is no mass, hematoma, midline shift, or acute infarct. Visualized intracranial internal carotid arteries, distal vertebral arteries, and basilar artery are widely patent. There is no significant stenosis, occlusion, or aneurysm seen within the bilateral ACAs, MCAs, or bakery decorator. . The major dural venous sinuses are patent. The aortic arch and proximal great vessels are widely patent. There is no significant stenosis, occlusion, or dissection identified within the bilateral common carotid, internal carotid, or vertebral arteries. Stable 4.8 cm cystic structure within the right superior mediastinum. IMPRESSION: 1. No significant stenosis, occlusion, or aneurysm within the [place]. 2. No significant stenosis, occlusion, or dissection identified within the carotid or vertebral arteries.. 3. Stable 4.8 cm cystic structure within the right superior mediastinum. ACT 112: Negative or not required by law. Electronically signed by: Zafar Marhc M.D. 01/29/2024 6:10 PM ECG Additional Comments: ECG. Sinus bradycardia rate of 56. No significant change was found. Code Status & VTE Plan VTE Prophylaxis Plan VTE Prophylaxis will be ordered: Yes
[2024-01-29] MEDS: SODIUM CHLORIDE 0.9% 1,000 ML IV SCH (22:30)
[2024-01-29] MEDS: HEPARIN SOD 5,000 UNIT/0.5 ML VIAL SQ SCH (22:36)
--- NOTE | 2024-01-30 01:16 | Magnetic Resonance Report ---
Exam(s): MRI HEAD Without Contrast EXAM: MR Head Without Intravenous Contrast CLINICAL HISTORY: dizziness. cva?. TECHNIQUE: Magnetic resonance images of the head/brain without intravenous contrast in multiple planes. COMPARISON: CT Brain 01-29-2024. FINDINGS: Brain: Age-appropriate central and peripheral atrophy. No acute stroke. No focal parenchymal abnormality. No acute hemorrhage. No abnormal extra-axial fluid collection. Minimal scattered supratentorial white matter subcortical and periventricular hyperintensities on FLAIR and T2-weighted images. Ventricles: No midline shift. No ventriculomegaly. Bones/joints: Unremarkable. No acute fracture. Sinuses: Unremarkable as visualized. No acute sinusitis. Mastoid air cells: Right mastoid fluid. Orbits: Unremarkable as visualized. IMPRESSION: No acute stroke or hemorrhage.. Minimal non-specific white matter changes, most commonly seen with small vessel disease. Redemonstrated right mastoid fluid. Electronically signed by: Kailash Griggs M.D. 01/30/24 01:15 AM
--- NOTE | 2024-01-30 01:20 | Magnetic Resonance Report ---
Exam(s): MRI C SPINE EXAM: MR Cervical Spine Without Intravenous Contrast CLINICAL HISTORY: severe neck pain. TECHNIQUE: Magnetic resonance images of the cervical spine without intravenous contrast in multiple planes. COMPARISON: CTA neck 01/29/2024. FINDINGS: Vertebrae: Maintenance of height of the vertebral bodies. No subluxation. Mild endplate hypertrophic changes at C5-6 with minimal marrow changes. Marrow signal intensity within normal limits. No evidence for fracture. Spinal cord: Caliber and signal intensity of the cervical cord within normal limits. No intraspinal hematoma or collection. Soft tissues: Prevertebral soft tissues are unremarkable. DISCS/SPINAL CANAL/NEURAL FORAMINA: C2-C3: Unremarkable. No significant disc disease. No stenosis. C3-C4: Unremarkable. No significant disc disease. No stenosis. C4-C5: Unremarkable. No significant disc disease. No stenosis. C5-C6: Mild central posterior disc bulge with mild effacement of the ventral thecal sac. Mild central canal stenosis. No neural foraminal stenosis. C6-C7: Mild diffuse posterior disc bulge with mild effacement of the ventral thecal sac with mild central canal stenosis. No neural foraminal stenosis. C7-T1: Unremarkable. No significant disc disease. No stenosis. IMPRESSION: Mild disc degenerative changes at C5-6 and C6-7 as described above. No neural foraminal stenosis. Electronically signed by: Kailash Griggs M.D. 01/30/24 01:19 AM
--- OUTSIDE RECORDS SUMMARY | 2024-01-30 03:37 | External Medical Summary | Summary of Care ---
Author Name Unknown Organization [facility] Address [address] [place] [address] Phone [phone] Care Team Providers Care Supreme Court Judge Name Role Phone Shahla Xiong Primary Care Provider Reason for Visit * Reason Onset Date Comments Referral 01/25/2024 Encounter Details Date Type Department Care Team (Late st Contact Info) Description 01/25/2024 Telephone Family Practice [facility] [address] [facility] [place] [address] Shahla Xiong CRNP [address] [facility] [address] Referral Allergies No known active allergiesdocumented as of this encounter (statuses as of 01/26/2024) Medications Medication Sig Dispensed Refills Start Date End Date Status Escitalopram Oxalate 5 MG Oral Tablet (Lexapro) Take 1 Tablet by mouth in the morning. 30 Tablet 1 01/02/2024 Active hydrOXYzine HCl 10 MG Oral Tablet (Atarax) Take 1 Tablet by mouth every 6 hours as needed for Anxiety. 90 Tablet 01/11/2024 Active Omeprazole 40 MG Oral Capsule Delayed Release (PriLOSEC) Take 1 Capsule by mouth in the morning. 1 hour before the first meal of the day. 30 Capsule 1 01/23/2024 Active Famotidine 10 MG Oral Tablet (Pepcid) Take 1 Tablet by mouth in the morning and 1 Tablet before bedtime. Active documented as of this encounter (statuses as of 01/26/2024) Active Problems Problem Noted Date Diagnosed Date Bradycardia 01/25/2024 Colitis 01/25/2024 Chronic gastritis without bleeding 01/25/2024 Dizziness 01/25/2024 Neck pain 01/25/2024 Gastroesophageal reflux disease without esophagi tis 01/02/2024 BEBETO (generalized anxiety disorder) 01/02/2024 Squamous cell carcinoma, face 01/02/2024 Mediastinal mass 10/17/2023 Tobacco use 10/17/2023 documented as of this encounter (statuses as of 01/26/2024) Social History Tobacco Use Types Packs/Day Years Used Date Smoking Tobacco: Every Day Cigarettes 0.8 39.4 Started: 09/17/1984 Smokeless Tobacco: Never Alcohol Use Standard Drinks/Week Comments Not Currently 0 (1 standard drink = 0.6 oz pur e alcohol) Hunger Vital Sign Answer Date Recorded Within the past 12 months, y ou worried that your food would run out before you got the money to buy more. Never true 12/19/19 24 Within the past 12 months, t he food you bought just didn't last and you didn't have money to get more. Never true 12/19/2023 Childcare Answer Date Recorded Do you feel overwhelmed with taking care of a child, family member or friend? No 12/19/2023 Does your family need help f inding childcare? (Household - for ages 0-17 years) Not on file 12/19/2023 Clothing Answer Date Recorded Have you been unable to get clothing when it was really needed? No 12/19/2023 Is your family able to get c lothes or diapers when needed? (Household - for ages 0-17 years) Not on file 12/19/2023 Personal Safety Answer Date Recorded Do you feel unsafe or have concerns for your saf ety? No 12/19/2023 Do you have concerns for you r family's safety? (Household - for ages 0-17 years) Not on file 12/19/2023 Utilities Answer Date Recorded Do you have trouble paying y our heating, water, or electric bill? No 12/19/2023 Is your family able to pay t he heat, water, or electric bill? (Household - for ages 0-17 years) Not on file 12/19/2023 Does your family have access to good internet? (Household - for ages 0-17 years) Not on file 12/19/2023 Employment Status Answer Date Recorded Are you unemployed or without regular income? No 12/19/2023 Does the household have a re gular source of income? (Household - for ages 0-17 years) Not on file 12/19/2023 Social Connections Answer Date Recorded How often do you feel lonely or isolated from th ose around you? Never 12/19/2023 Financial Resource Strain Answer Date R ecorded Do you have any trouble payi ng for your medications, or do you think you might in the future? No 12/19/2023 Does your family have troubl e paying for medicine? (Household - for ages 0-17 years) Not on file 12/19/2023 Transportation Needs Answer Date Record ed Do you have trouble getting a ride to medical visits or work? (Adult - for ages 18 years and over) Not on file 12/19/2023 Does your family have a hard time getting a ride to doctors visits? (Household - for ages 0-17 years) Not on file 12/19/2023 Has lack of transportation k ept you from medical appointments, meetings, work, or from getting things needed for daily living? Check all that apply. No 12/19/2023 Do you (or your family) have trouble finding or paying for a ride (transportation)? (Household - for ages 0-17 years) Not on file 12/19/2023 Housing Stability Answer Date Recorded Do you currently live in a s helter or have no steady place to sleep at night? No 12/19/2023 Do you think you are at risk of becoming homeless? (Adult - for ages 18 years and over) Not on file 12/19/2023 Does your family worry about paying for your home or becoming homeless? (Household - for ages 0-17 years) Not on file 0 12/19/2023 Are you homeless or worried that you might be in the future? No 12/19/2023 Are you (or your family) sylvia eless or worried that you might be in the future? (Household - for ages 0-17 years) Not on file Food Insecurity Answer Date Recorded Do you need food for this week? No 12/19/2023 Are you able to get enough f ood for your family? (Household - for ages 0-17 years) Not on file 12/19/2023 Does your family need food t his week? (Household - for ages 0-17 years) Not on file 12/19/2023 Do you always have enough fo od for your family? (Household - for ages 0-17 years) Not on file 12/19/2023 Sex and Gender Information Value Date Recorded Sex Assigned at Female 12/19/2023 9:22 AM EDT Gender Identity Female 12/19/2023 9:22 AM EDT Sexual Orientation Straight 12/19/2023 9: 22 AM EDT documented as of this encounter Miscellaneous Notes * Telephone Encounter - Myla Pena OSA - 01/26/2024 2:08 PM EDT Colon/egd 02/15 * Telephone Encounter - Daysi Peña OSA - 01/25/2024 3:03 PM EDT Please call patient to schedule colonoscopy and endoscopy thank you documented in this encounter Plan of Treatment Upcoming Encounters Date Type Department Care Team (Latest Contact Info) Description 01/29/2024 2:40 PM EDT Office Visit Neurology [facility] [address] [place] [address] Sommer Martell PA-C [address] [place] [address] 02/02/2024 3:00 PM EDT Office Visit Family Practice [facility] [address] [address] Shahla Xiong CRNP [address] [place] [address] 02/14/2024 11:30 AM EDT Telemedicine Psychology [facility] [address] [place] [phone] Lucrecia Danielson, [employer] [address] [facility] [place] [address] 02/16/2024 2:00 PM EDT Hospital Encounter ENDO [facility], Endoscopy Room [facility] [address] [place] [phone] Zen Garcia MD [address] [place] [address] 02/16/2024 2:00 PM EDT - 02/16/2024 3:00 PM EDT Surgery ENDO [facility], Endoscopy Room [facility] [address] [place] [address] Zen Garcia MD [address] [place] [address] COLONOSCOPY FLEXIBLE PROXIMAL DIAGNOSTIC 05/27/2024 11:00 AM EST Office Visit Cardiology, [facility] [address] [place] [address] Kris Chavez DO [address] [place] [address] Scheduled Procedures Name Priority Associated Diagnoses Date/Ti me COLONOSCOPY FLEXIBLE PROXIMA L DIAGNOSTIC Colitis Gastritis 02/16/2024 2:00 PM EDT ESOPHAGOGASTRODUODENOSCOPY ( EGD), FLEXIBLE, TRANSORAL, DIAGNOSTIC Colitis Gastritis 02/16/2024 2:00 PM EDT Health Maintenance Due Date Last Done Comments Lipid Panel 1969 Depression Screening 1981 HIV Screening 1984 Hepatitis C Screening 1987 Hepatitis B Vaccine (1 of 3 - 19+ 3-dose series) 1988 Pap Smear 1990 Cervical Cancer Screening 1999 HPV/Co-Test 1999 Cologuard 2014 Colonoscopy 2014 Colorectal Cancer Screening 2014 Fecal Occult Blood Test 2014 Sigmoidoscopy 2014 Pneumococcal Vaccine: Pediatrics (0 to 5 Years) and At-Risk Patients (6 to 64 Years) (2 of 2 - PCV) 04/08/2017 04/08/2016 Zoster Vaccines (1 of 2) 2019 Mammogram 03/17/2021 03/17/2020, 02/18, 12/06/2018, Additional history exists COVID-19 Vaccine (1 - season) 2023 Influenza Vaccine (FLU shot) (#1) 2024 03/31/2022, 03/24/2021, 03/03/2020, Additional history exists DTaP,Tdap,and Td Vaccines (2 - Td or Tdap) 04/08/2025 04/08/2015 Diabetes Screening 01/18/2027 01/19/2024 Lung Cancer Screening Completed 10/25/2023 HPV (Gardasil) Vaccine Aged Out No lo nger eligible based on patient's age to complete this topic MENINGOCOCCAL (MENACTRA/MENVEO) Aged Out No longer eligible based on patient's age to complete this topic documented as of this encounter Medical Devices Not on filedocumented as of this encounter Care Teams Supreme Court Judge Relationship Specialty Start Date End Date Shahla Xiong CRNP [address] [place] [address] [address] PCP - General Nurse Practitioner 01/02/24 documented as of this encounter
[2024-01-30 05:59] LABS: Hematocrit (blood only) 41.7 % (37.0-47.0); Hemoglobin 13.6 g/dl (12.0-16.0); Mean Corpuscular Hemoglobin 30.2 pg (25.0-34.0); Mean Corpuscular Hgb Conc 32.6 g/dL (32.0-36.0); Mean Corpuscular Volume 92.5 fL (80.0-100.0); Mean Platelet Volume 10.4 fL (9.4-12.4); Platelet Count 289 K/uL (130-400); RDW Coefficient of Variation 13.2 % (11.5-14.5); RDW Standard Deviation 45.1 fL (36.4-46.3); Red Blood Count 4.51 M/uL (4.20-5.40); White Blood Count 4.33 K/ul (4.8-10.8)
[2024-01-30 06:11] LABS: Calcium 8.6 mg/dl (8.6-10.3); Chol HDL Ratio 4.5 (0-5); Creatinine Clr Calc Pharmacy 74.7 ml/min; Est GFR (African American) 85.2 ml/min; Est GFR (Non-African American) 73.5 ml/min; Potassium 4.6 mmol/L (3.5-5.1)
--- OUTSIDE RECORDS SUMMARY | 2024-01-30 06:18 | External Medical Summary | Summary of Care ---
Author Name Unknown Organization [facility] Address [address] [place] [address] Phone [phone] Care Team Providers Care Spiritual Counselor Name Role Phone Shahla Xiong Carla MELANIE Primary Care Provider Reason for Visit * Reason Onset Date Comments MyCode Consent 01/29/2024 Encounter Details Date Type Department Care Team (Late st Contact Info) Description 01/29/2024 Orders Only Outcomes Research Department [address] [place] [address] Altagracia Luciano CHRA MyCode Research Other*[id number]* Allergies No known active allergiesdocumented as of this encounter (statuses as of 01/29/2024) Medications Medication Sig Dispensed Refills Start Date [...] as of this encounter (statuses as of 01/29/2024) Active Problems Problem Noted Date Diagnosed Date Bradycardia 01/25/2024 Colitis 01/25/2024 Chronic gastritis without bleeding 01/25/2024 Dizziness 01/25/2024 Neck pain 01/25/2024 Gastroesophageal reflux disease without esophagi tis 01/02/2024 BEBETO (generalized anxiety disorder) 01/02/2024 Squamous cell carcinoma, face 01/02/2024 Mediastinal mass 10/17/2023 Tobacco use 10/17/2023 documented as of this encounter (statuses as of 01/29/2024) Social History Tobacco Use Types Packs/Day Years [...] Orientation Straight 12/19/2023 9: 22 AM EDT Job Start Date Occupation Industry Not on file Not on file Not on file documented as of this encounter Progress Notes * Altagracia Luciano CHRA - 01/29/2024 1:04 PM EDT MyCode Consent Documentation Meredith Hitchcock provided consent/authorization to participate in the [employer]. documented in this encounter Plan of Treatment Upcoming Encounters Date Type Department Care Team (Latest Contact Info) Description 01/29/2024 2:40 PM EDT Office Visit Neurology [facility] [address] [facility] [place] [address] Sommer Martell PA-C [address] [facility] [place] [address] Arrived 02/02/2024 3:00 PM EDT Office Visit [facility] [place] [address] Shahla Xiong CRNP [address] [place] [address] 02/14/2024 11:30 AM EDT Telemedicine Psychology Corina Bowser [address] [phone] Lucrecia Danielson, [facility] [address] [facility] [place] [address] 02/16/2024 2:00 PM EDT Hospital Encounter ENDO [facility], Endoscopy Room [facility] [address] [place] [address] Zen Garcia MD [address] [place] [address] 02/16/2024 2:00 PM EDT - 02/16/2024 3:00 PM EDT Surgery ENDO [facility], Endoscopy Room [facility] [address] [place] [address] Zen Garcia MD [address] [place] [address] COLONOSCOPY FLEXIBLE PROXIMAL DIAGNOSTIC 05/27/2024 11:00 AM EST Office Visit Cardiology, [facility] [address] [place] [address] Kris Chavez DO [address] [place] [address] Scheduled Orders Name Type Priority Associated Diagnoses Orde r Schedule MYCODE INITIAL ADULT Lab Routine MyCode Research Other*[id number] Expected: 01/29/2024 (Approximate), Expires: 02/17/2025 Scheduled Procedures Name Priority Associated Diagnoses Date/Ti [...] Not on filedocumented as of this encounter Visit Diagnoses Diagnosis MyCode Research Other*[id number]- Primary Colitis Other and unspecified noninfectious gastroenteritis and colitis Gastritis Unspecified gastritis and gastroduodenitis without mention of hemorrhage documented in this encounter Care Teams Spiritual Counselor Relationship Specialty Start Date End Date Shahla Xiong CRNP [address] [place] [address] PCP - General Nurse Practitioner 01/02/24 documented as of this encounter
[2024-01-30 06:27] LABS: Basophils # (auto) 0.06 K/uL (0.00-0.20); Basophils % (auto) 1.4 %; Eosinophils # (auto) 0.15 K/uL (0.00-0.50); Eosinophils % (auto) 3.5 %; Immature Granulocytes # (auto) 0.01 K/uL (0.01-0.20); Immature Granulocytes % (auto) 0.2 %; Lymphocytes # (auto) 2.22 K/uL (1.20-3.40); Lymphocytes % (auto) 51.3 %; Monocytes # (auto) 0.29 K/uL (0.11-0.59); Monocytes % (auto) 6.7 %; Neutrophils % (auto) 36.9 %; RBC Morphology Unremarkable
[2024-01-30 07:03] LABS: Estimated Average Glucose 128 mg/dl; Hemoglobin A1C 6.1 % (4.5-5.6)
[2024-01-30] MEDS: PANTOprazole 40 MG TAB PO SCH (08:01)
--- NOTE | 2024-01-30 09:06 | Cardiology Consultation ---
Date of Consultation January 30, 2024 Assessment & Plan (1) Bradycardia: (2) Dizziness: (3) Weakness: Plan Assessment: 53 year old female admitted for stroke work up due to dizziness, visual disturbances and weakness. Found to have symptomatic bradycardia with rates as low as 32 during wake hours. Plan: -Thus far CVA work up has been negative by review of imaging. -Review of telemetry demonstrates profound sinus bradycardia with rates as low as 32 during wake hours. -TSH normal -lyme panel negative. -Echocardiogram shows normal LVEF and wall motion with no significant valvular disease. -discussed patient's symptoms consistent with profound bradycardia and recomme ndation to consider permanent pacemaker insertion. -Case discussed with Dr. Patrick and will plan for pacemaker insertion tomorrow with Dr. Santana. -Refrain from any AV iva blocking agents. -NPO After midnight. Case has been discussed with Dr. Patrick. Further recommendations regarding plan of care as per his assessment. I spent a total of 40 minutes on the date of service in preparation, delivery, documentation of the care provided to the patient excluding any time spent in the performance of separately billed services. MELANIE Shelton [facility] Cardiology [facility] [place] Supervising Physician Co-Signing Physician Notes Patient was seen and personally examined. Chart, medications reviewed. Inp atient and outpatient records observed. 53-year-old female without prior structural heart disease presenting with several months history of intermittent dizziness and lightheadedness with multiple evaluations unrevealing. Sinus bradycardia observed on outpatient EKG and event monitor pending. Admitted now with worsening symptoms and complaints with marked sinus bradycardia, no high degree AV block but findings consistent with sick sinus syndrome and symptomatic bradycardia No inciting cause observed. Thyroid function normal and Lyme screen negative. No intracranial process defined by head CTA and brain MRI Noted the patient will be best served with dual-chamber pacemaker We will keep n.p.o. after midnight with tentative procedure tomorrow I spent a total of 40 minutes on the date of service in preparation, delivery, documentation of the care provided to the patient excluding any time spent in the performance of separately billed services. History of Present Illness Reason for Consultation: Bradycardia Requesting Physician: [facility] hospitalist Attending Physician: William Luong MD History of Present Illness HPI: patient is a 53 year old female with PMHx significant for Bradycardia, mediastinal mass, GERD, colitis, chronic gastritis, squamous cell carcinoma face, neck pain, tobacco use, generalized anxiety disorder, ongoing dizziness was seen by neurology today and was advised for stroke workup. Patient states she is having on and off dizziness since last July. And also seeing some black spots on the right peripheral vision for several weeks. On and off headaches. Today headache is somewhat more severe. Has some nausea. Lost about 40 pounds in the last several months, unintentional, but also endorses a poor appetite. She is slated for both upper and lower endoscopies outpatient at the end of the month. Initial EKG SB rate 56bpm Repeat EKG this morning, SB with sinus arrhythmia Rate 50bpm. Echocardiogram pending. Head CT: Impression: No acute intracranial abnormality. Stable chronic right mastoid effusion. Head and neck CTA: IMPRESSION: 1. No significant stenosis, occlusion, or aneurysm within the craig of [place]. 2. No significant stenosis, occlusion, or dissection identified within the carotid or vertebral arteries.. 3. Stable 4.8 cm cystic structure within the right superior mediastinum. Brain MRI: IMPRESSION: No acute stroke or hemorrhage.. Minimal non-specific white matter changes, most commonly seen with small vessel disease. Redemonstrated right mastoid fluid. Cervical spine MRI: IMPRESSION: Mild disc degenerative changes at C5-6 and C6-7 as described above. No neural foraminal stenosis. Review of telemetry demonstrates sinus bradycardia with rates of 32-40 bpm while awake. She feels weak and lightheaded. Denies chest pain, pressure, palpitations, denies shortness of breath, PND or edema. Endorses pre-syncopal spells, but no syncope. Allergies Allergy/AdvReac Type Severity Reaction Status Date / Time No Known Allergies Allergy Verified 01/29/24 18:50 Home Medications Medication Instructions Recorded Confirmed Type famotidine 40 mg tablet 40 mg PO BID PRN 12/12/23 01/29/24 History HEARTBURN/INDIGESTION diazepam 5 mg tablet 2.5 mg PO BID PRN Anxiety 01/29/24 01/29/24 History hydroxyzine HCl 10 mg tablet 10 mg PO Q6 PRN Anxiety 01/29/24 01/29/24 History omeprazole 40 mg capsule,delayed 40 mg PO DAILY 01/29/24 01/29/24 History release Patient History Medical History Nausea after anesthesia Anxiety recently had chest pain end 07/2023, checked by and "no findings" GERD (gastroesophageal reflux disease) Surgical History Hx of hysterectomy 2011 Hx of colonoscopy Status post myringotomy with tube placement of both ears Hx of tonsillectomy Social History Smoking Status: Current every day smoker Tobacco Type: Cigarettes Cigarettes Per Day: 20/day; Second Hand Exposure: Yes; Do You Dip or Chew Tobacco: No; Tobacco Cessation Education Requested by Patient: No Hx Alcohol Use: No Hx Substance Use: No Preferred Language: Fijian Communication Ability: Effective [employer] Goods Marker Required: No Beliefs That Will Affect Care: None Current Living Situation: Spouse and Family Other Information That Helps Us Care for You: No Feels Safe at Home: Yes Safety Concerns: Feels Safe At This Time Assistive Devices: None Review of Systems Review of Systems: All systems reviewed & are unremarkable except as noted in HPI & below Physical Exam Constitutional: well developed and + thin; no acute distress and not ill appearing Neck: normal visual inspection and trachea midline Respiratory: normal respiratory effort, lungs clear to auscultation Cardiovascular: Rate/Rhythm: + bradycardic Heart Sounds: normal S1 and normal S2; no murmur Vessels: no JVD Extremities: no edema Skin: no rashes, warm and dry Psychiatric: A+Ox3, euthymic affect Results & Data Vital Signs (Past 12 Hours) Vital Signs Temp Pulse Pulse Resp BP BP Pulse Ox 01/30/24 07:44 41 L 01/30/24 07:07 36.8 C 46 L 18 111/72 97 01/30/24 03:16 36.6 C 44 L 14 94/58 L 95 01/30/24 01:05 32 L 01/29/24 23:15 36.6 C 43 L 14 106/59 L 94 01/29/24 22:12 43 L 01/29/24 21:00 O2 Del Method 01/30/24 07:44 01/30/24 07:07 Room Air 01/30/24 03:16 Room Air 01/30/24 01:05 01/29/24 23:15 Room Air 01/29/24 22:12 01/29/24 21:00 Room Air Laboratory Results Cardiac Enzymes 01/29/24 Range/Units 16:00 AST 18 (13-39) U/L Troponin I High Sens 4.3 (0-14) pg/ml Coagulation 01/29/24 Range/Units 16:00 PT 10.9 (9.0-12.0) Seconds APTT 29 (21-31) Seconds Lipids 01/30/24 Range/Units 05:34 Triglycerides 131 (0-150) mg/dl Cholesterol 167 (0-200) mg/dl HDL Cholesterol 37 mg/dl Cholesterol/HDL Ratio 4.5 (0-5) CBC 01/29/24 01/30/24 Range/Units 16:00 05:34 WBC 6.47 4.33 L (4.8-10.8) K/ul RBC 5.18 4.51 (4.20-5.40) M/uL Hgb 15.9 13.6 (12.0-16.0) g/dl Hct 46.9 41.7 (37.0-47.0) % Plt Count 340 289 (130-400) K/uL Neut # (Auto) 3.74 1.60 (1.40-6.50) K/uL Lymph # (Auto) 2.25 2.22 (1.20-3.40) K/uL Oxford # (Auto) 0.32 0.29 (0.11-0.59) K/uL Eos # (Auto) 0.10 0.15 (0.00-0.50) K/uL Baso # (Auto) 0.05 0.06 (0.00-0.20) K/uL Comprehensive Metabolic Panel 01/29/24 01/30/24 Range/Units 16:00 05:34 Sodium 139 140 (136-145) mmol/L Potassium 3.7 4.6 D (3.5-5.1) mmol/L Chloride 103 108 H (98-107) mmol/L Carbon Dioxide 27 28 (21-32) mmol/L BUN 8 8 (6-23) mg/dl Creatinine 0.83 0.89 (0.6-1.2) mg/dl Glucose 96 103 H (70-99(Fasting)) mg/dl Calcium 10.3 8.6 (8.6-10.3) mg/dl AST 18 (13-39) U/L ALT 15 (7-52) U/L Alkaline Phosphatase 81 (34-104) U/L Total Protein 8.0 (6.0-8.3) gm/dl Albumin 4.9 (3.4-5.0) gm/dl Intake and Output 01/29/24 01/30/24 01/30/24 22:59 06:59 14:59 Intake Total 1200 / 1325 125 / 1325 1000 / 1000 Balance 1200 / 1325 125 / 1325 1000 / 1000 Intake: IV 1100 / 1100 1000 / 1000 Acetaminophen 1,000 mg In 100 100 / 100 ml @ 400 mls/hr IV NOW STA Rx#: [id number] Sodium Chloride 0.9% 1,000 ml @ 1000 / 1000 1000 / 1000 80 mls/hr IV .[id number] [facility] Rx#: [id number] Oral 100 / 225 125 / 225 Other: # Unmeasured Voids 1 Weight 77.2 kg 81.7 kg Weight Measurement Method Built in [facility] Built in [facility] Diagnostic Findings Echocardiogram today: Sinus bradycardia LV normal in size Normal LV wall thickness Normal LV wall motion LVEF 60-65% no significant valvular disease The interatrial septum is intact with no evidence for an ASD
--- NOTE | 2024-01-30 10:20 | Electrocardiogram Report ---
Test Reason : Blood Pressure : */* mmHG Vent. Rate : 56 BPM Atrial Rate : 56 BPM P-R Int : 118 ms QRS Dur : 86 ms QT Int : 420 ms P-R-T Axes : 61 50 60 degrees QTcB Int : 405 ms Sinus bradycardia Possible Left atrial enlargement Borderline ECG When compared with ECG of 22-Jan-2024 18:29, No significant change was found Confirmed by Unruly Miller ([id number]) on 01/30/2024 10:19:39 AM Referred By: REFERRED SELF Confirmed By: Unruly Miller
[2024-01-30] MEDS: ONDANSETRON INJ 2 MG/ML 2 ML VIAL IV PRN (10:53)
--- NOTE | 2024-01-30 10:59 | Electrocardiogram Report ---
Test Reason : Blood Pressure : */* mmHG Vent. Rate : 50 BPM Atrial Rate : 50 BPM P-R Int : 128 ms QRS Dur : 90 ms QT Int : 468 ms P-R-T Axes : 0 10 18 degrees QTcB Int : 426 ms Sinus bradycardia with sinus arrhythmia Otherwise normal ECG When compared with ECG of 29-Jan-2024 15:52, Nonspecific T wave abnormality now evident in Inferior leads Confirmed by Unruly Miller ([id number]) on 01/30/2024 10:58:53 AM Referred By: REFERRED SELF Confirmed By: Unruly Miller
--- NOTE | 2024-01-30 15:36 | Hospitalist Progress Note ---
Date of Service January 30, 2024 Assessment & Plan (1) Dizziness: Plan: 53-year-old female with past medical significant for bradycardia, mediastinal mass, GERD, colitis, chronic gastritis, squamous cell carcinoma face, neck pain, tobacco use, generalized anxiety disorder, ongoing dizziness was seen by neurology today and was advised for stroke workup. Patient states she is having on and off dizziness since last July. And also seeing some black spots on the right peripheral vision for several weeks. On and off headaches. Headache is somewhat more severe. Has some nausea. Lost about 40 pounds in the last several months. Ambulates okay. No fevers. No runny nose or sore throat. States left ear has fluid. Has heartburn symptoms. Seems CT scan done recently showed colitis and was seen by GI few days back. GI is planning to do EGD and colonoscopy. Currently no abdominal pain. She had diarrhea but that got resolved today. No blood in the stools. Normal bladder movements. She also noted to have bradycardia and she has Zio patch placed. She also feeling hot and cold symptoms. Has chronic neck pain. Today she felt [id number] in left shoulder and left arm. Dizziness Presents with intermittent dizziness ongoing for several months ? Related to arrhythmias/mastoid effusion Evaluated by outpatient neurology who recommended further workup to rule out CVA --Brain MRI:No acute stroke or hemorrhage. Minimal non-specific white matter changes, most commonly seen with small vessel disease. Redemonstrated right mastoid fluid. --Cervical MRI:Mild disc degenerative changes at C5-6 and C6-7 as described above. No neural foraminal stenosis. --Head/Neck CTA:No significant stenosis, occlusion, or aneurysm within the teller of [place]. No significant stenosis, occlusion, or dissection identified within the carotid or vertebral arteries.Stable 4.8 cm cystic structure within the right superior mediastinum. --ECHO: Sinus bradycardia. Left ventricle is normal in size. Normal left ventricle wall thickness. Left ventricle wall motion normal. EF 60 to 65%. No significant valvular disease. Interatrial septum is intact. -- Check orthostatics --Monitor on telemetry to rule out arrhythmias Neurology consulted Sinus bradycardia TSH normal Lyme screen negative Echo as above Avoid AV iva blocking agents Appreciate cardiology input N.p.o. after midnight for tentative procedure tomorrow Mediastinal cyst Incidental finding on CT Further workup as outpatient H/O Colitis Weight loss Planned for EGD and colonoscopy per GI Right mastoid effusion Likely chronic ENT consulted Gastritis Continue pantoprazole Anxiety on Diazepam as needed. 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 Complex migraine Imaging studies showed no acute CVA Will need follow-up with ophthalmology as outpatient Cervicalgia Chronic Likely due to degenerative disc disease Monitor DVT Px: Heparin SQ CODE STATUS Full code Admission and Anticipated Discharge Date Admission Date: January 29, 2024 Subjective Patient is seen and examined at bedside States having intermittent dizziness associated with nausea Also reports chronic neck pain Headache is better when compared to yesterday Denies any chest pain, dyspnea, abdominal pain Discussed with cardiology today No other complaints Review of Systems Review of Systems: All systems reviewed & are unremarkable except as noted in Subjective Physical Exam Physical Exam: Physical Exam: Vitals signs as noted above General Appearance:Moderately built and nourished, no apparent distress Head: normocephalic, Atraumatic Eyes: normal inspection, EOMI Neck: supple, Trachea midline Respiratory/Chest: Normal breath sounds, CTA, No accessory muscle use Cardiovascular: S1, S2, No murmur, +Bradycardia Abdomen/GI:Soft, Non tender, Bowel sounds present Extremities/Musculoskeletal:normal inspection, no edema Neurologic/Psych:AAOX3, grossly no focal neurological deficits Skin: normal color, warm Results & Data Results & Data Vital Signs (Past 12 Hours) Vital Signs Temp Pulse Pulse Resp BP Pulse Ox O2 Del Method 01/30/24 11:56 36.3 C L 42 L 18 123/79 97 Room Air 01/30/24 07:44 41 L 01/30/24 07:07 36.8 C 46 L 18 111/72 97 Room Air
--- NOTE | 2024-01-30 17:23 | Neurology Consultation ---
Date of Consultation January 30, 2024 Assessment & Plan (1) Dizziness: Agree with cardiology recommendations for implanted pacer device Continue frequent neurological assessments Obtain stat CT brain without contrast for any acute neurological decline Continue to monitor/control blood pressure & blood glucose Continue to monitor renal and hepatic function, keep euvolemic Metabolic workup should include hgbA1c, fasting lipids, homocysteine, TSH, D Dimer, RPR, urinalysis Ok from neurology perspective for VTE prophylaxis PT/OT/SLT to eval and treat (2) Headache: Continue to monitor symptoms of headache and changes in sensation posterior cervical spine If symptoms persist consider LP to eval CSF for CARD LACER infection Continue follow up with Neurology outpatient Telehealth Consultation Telehealth Information Telehealth Information: I performed this visit using a real-time telehealth connection between my location and the patients location ([facility]). After c onnecting through interactive tele-video, patient was identified by name and date of and/or wristband check.Patient (or authorized healthcare senior outside sales representative) was informed that this was a telemedicine visit and it was being conducted confidentially over secure lines. My office door was closed and no one else was present in the room with me.Patient (or authorized healthcare senior outside sales representative) provided consent to proceed with the visit, expressed an understanding of privacy and security of the telemedicine visit, and gave permission to have a hospital senior outside sales representative in the room in order to assist with the visit and to conduct portions of the visit, as needed. I informed the patient (or authorized healthcare senior outside sales representative) that I reviewed their record and presented the opportunity for them to ask any questions regarding the visit today. The patient agreed to participate. History of Present Illness Reason for Consultation: Dizziness/lightheadedness Requesting Physician: Dr. Luong Attending Physician: William Luong MD History of Present Illness 53yo female presented with recurrent episodes of dizziness/lightheadedness. Has undergone CTA head & neck as well as MRI brain revealing no evidence of acute pathology/causative pathology. She endorses feeling headache and weird sensation in the back of her head and neck. She has also undergone MRI cervical spine revealing no overt evidence of causative pathology. She reports headache and is notably reporting some difference between lying and standing. She does not endorse complete resolution of headache while supine but reports worsening if standing. She has been found to be severely bradycardic at times and cardiology has been consulted. There is a plan to undergo implanted cardiac pacer device in AM. I have performed televideo consultation. She is alert & oriented; able to answer all questions appropriately. Neurological exam is non lateralizing/nonfocal in terms of motor strength and coordination. at bedside, all questions answered. Allergies Allergy/AdvReac Type Severity Reaction Status Date / Time No Known Allergies Allergy Verified 01/29/24 18:50 Home Medications Medication Instructions Recorded Confirmed Type famotidine 40 mg tablet 40 mg PO BID PRN 12/12/23 01/29/24 History HEARTBURN/INDIGESTION diazepam 5 mg tablet 2.5 mg PO BID PRN Anxiety 01/29/24 01/29/24 History hydroxyzine HCl 10 mg tablet 10 mg PO Q6 PRN Anxiety 01/29/24 01/29/24 History omeprazole 40 mg capsule,delayed 40 mg PO DAILY 01/29/24 01/29/24 History release Patient History Medical History Nausea after anesthesia Anxiety recently had chest pain end 07/2023, checked by and "no findings" GERD (gastroesophageal reflux disease) Surgical History Hx of hysterectomy 2011 Hx of colonoscopy Status post myringotomy with tube placement of both ears Hx of tonsillectomy Social History Smoking Status: Current every day smoker Tobacco Type: Cigarettes Cigarettes Per Day: 20/day; Second Hand Exposure: Yes; Do You Dip or Chew Tobacco: No; Tobacco Cessation Education Requested by Patient: No Hx Alcohol Use: No Hx Substance Use: No Preferred Language: Japanese Communication Ability: Effective 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
--- NOTE | 2024-01-30 17:36 | Neurology Consultation ---
Date of Consultation January 30, 2024 Assessment & Plan (1) Dizziness: Agree with cardiology recommendations for implanted pacer device Continue frequent neurological assessments Obtain stat CT brain without contrast for any acute neurological decline Continue to monitor/control blood pressure & blood glucose Continue to monitor renal and hepatic function, keep euvolemic Metabolic workup should include hgbA1c, fasting lipids, homocysteine, TSH, D Dimer, RPR, urinalysis Ok from neurology perspective for VTE prophylaxis PT/OT/SLT to eval and treat (2) Headache: Continue to monitor symptoms of headache and changes in sensation posterior cervical spine If symptoms persist consider LP to eval 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 After c onnecting through interactive tele-video, patient was identified by name and date of and/or wristband check.Patient (or authorized healthcare risk control field representative) was informed that this was a telemedicine visit and it was being conducted confidentially over secure lines. My office door was closed and no one else was present in the room with me.Patient (or authorized healthcare risk control field representative) provided consent to proceed with the visit, expressed an understanding of privacy and security of the telemedicine visit, and gave permission to have a hospital risk control field representative in the room in order to assist with the visit and to conduct portions of the visit, as needed. I informed the patient (or authorized healthcare risk control field representative) that I reviewed their record and presented the opportunity for them to ask any questions regarding the visit today. The patient agreed to participate. History of Present Illness Reason for Consultation: Dizziness Requesting Physician: Dr. Luong Attending Physician: William Luong MD History of Present Illness 53yo female presented with recurrent episodes of dizziness/lightheadedness. Has undergone CTA head & neck as well as MRI brain revealing no evidence of acute pathology/causative pathology. She endorses feeling headache and weird sensation in the back of her head and neck. She has also undergone MRI cervical spine rev ealing no overt evidence of causative pathology. She reports headache and is notably reporting some difference between lying and standing. She does not endorse complete resolution of headache while supine but reports worsening if standing. She has been found to be severely bradycardic at times and cardiology has been consulted. There is a plan to undergo implanted cardiac pacer device in AM. I have performed televideo consultation. She is alert & oriented; able to answer all questions appropriately. Neurological exam is non lateralizing/nonfocal in terms of motor strength and coordination. at bedside, all questions answered. Allergies Allergy/AdvReac Type Severity Reaction Status Date / Time No Known Allergies Allergy Verified 01/29/24 18:50 Home Medications Medication Instructions Recorded Confirmed Type famotidine 40 mg tablet 40 mg PO BID PRN 12/12/23 01/29/24 History HEARTBURN/INDIGESTION diazepam 5 mg tablet 2.5 mg PO BID PRN Anxiety 01/29/24 01/29/24 History hydroxyzine HCl 10 mg tablet 10 mg PO Q6 PRN Anxiety 01/29/24 01/29/24 History omeprazole 40 mg capsule,delayed 40 mg PO DAILY 01/29/24 01/29/24 History release Patient History Medical History Nausea after anesthesia Anxiety recently had chest pain end 07/2023, checked by and "no findings" GERD (gastroesophageal reflux disease) Surgical History Hx of hysterectomy 2011 Hx of colonoscopy Status post myringotomy with tube placement of both ears Hx of tonsillectomy Social History Smoking Status: Current every day smoker Tobacco Type: Cigarettes Cigarettes Per Day: 20/day; Second Hand Exposure: Yes; Do You Dip or Chew Tobacco: No; Tobacco Cessation Education Requested by Patient: No Hx Alcohol Use: No Hx Substance Use: No Preferred Language: Czech Communication Ability: Effective Dice Spotter Required: No Beliefs That Will Affect Care: None Current Living Situation: Spouse and Family Other Information That Helps Us Care for You: No Feels Safe at Home: Yes Safety Concerns: Feels Safe At This Time Assistive Devices: None Physical Exam Neurological Examination: Mental Status: Awake and alert. Oriented to person, place, and time. Fluency naming repetition and comprehension appear grossly intact. Affect remains appropriate. CN testing: I: Denies changes in ability to smell II:Reports no changes in visual acuity III/IV/: No evidence of gaze preference, hippus, nystagmus or roving eye movements V: Facial sensation reportedly grossly intact to light touch bilaterally VII: Facial movements appear without evidence of asymmetry VIII: Hearing appears grossly intact to loud voice bilaterally IX/X: Palate appears to elevate symmetrically XI: Shoulder shrug appears symmetric/ grossly intact bilaterally XII: Tongue protrudes midline without evidence of biting Motor exam: Strength appears grossly intact/symmetric in all extremities Sensory: Sensation is difficult to reliably assess Coordination: Deferred Reflexes: Deferred Gait: Deferred Results & Data Vital Signs (Past 12 Hours) Vital Signs Temp Pulse Pulse Resp BP Pulse Ox O2 Del Method 01/30/24 16:05 36.5 C 44 L 20 113/69 97 Room Air 01/30/24 15:52 54 L 01/30/24 11:56 36.3 C L 42 L 18 123/79 97 Room Air 01/30/24 07:44 41 L 01/30/24 07:07 36.8 C 46 L 18 111/72 97 Room Air Laboratory Results Abnormal lab results 01/30/24 Range/Units 05:34 WBC 4.33 L (4.8-10.8) K/ul Chloride 108 H (98-107) mmol/L BUN/Creatinine Ratio 9.0 L (10-20) Glucose 103 H (70-99(Fasting)) mg/dl Hemoglobin A1c 6.1 H (4.5-5.6) % Diagnostic Findings Head CT 01/29/24 16:[address] DOSE: HISTORY: Dizziness. neuro deficit, acute stroke suspected TECHNIQUE: Multiaxial CT images of the head were performed without the use of intravenous contrast. Automated exposure control was utilized for this study. A dose lowering technique was utilized adhering to the principles of ALARA. Comparison: Head CT 01/01/2024. Findings: Stable chronic right mastoid effusion. The paranasal sinuses and left mastoid air cells are clear. The calvarium and skull base are intact. The ventricles and sulci are within normal limits. There is no mass, hematoma, midline shift, or acute infarct. Impression: No acute intracranial abnormality. Stable chronic right mastoid effusion. ACT 112: Negative or not required by law. Electronically signed by: Zafar March M.D. 01/29/2024 6:02 PM Head CTA 01/29/24 16:24 HEAD & NECK CTA HISTORY: Dizziness neuro deficit, acute stroke suspected TECHNIQUE: Multiaxial CT images of the head were performed following the intravenous administration of contrast to evaluate the major cerebral vessels. Multiaxial CT images of the neck were also performed following the intravenous administration of contrast to evaluate the major cervical vessels. 3D/MIP images were also obtained. Sagittal and coronal reformats were reviewed. A dose lowering technique was utilized adhering to the principles of ALARA. COMPARISON: Head CT 01/29/2024. CT neck 10/08/2023. FINDINGS: There is no mass, hematoma, midline shift, or acute infarct. Visualized intracranial internal carotid arteries, distal vertebral arteries, and basilar artery are widely patent. There is no significant stenosis, occlusion, or aneurysm seen within the bilateral ACAs, MCAs, or board lining machine operator. . The major dural venous sinuses are patent. The aortic arch and proximal great vessels are widely patent. There is no significant stenosis, occlusion, or dissection identified within the bilateral common carotid, internal carotid, or vertebral arteries. Stable 4.8 cm cystic structure within the right superior mediastinum. IMPRESSION: 1. No significant stenosis, occlusion, or aneurysm within the [place] of [place]. 2. No significant stenosis, occlusion, or dissection identified within the carotid or vertebral arteries.. 3. Stable 4.8 cm cystic structure within the right superior mediastinum. ACT 112: Negative or not required by law. Electronically signed by: Zafar March M.D. 01/29/2024 6:10 PM Neck CTA 01/29/24 16:24 HEAD & NECK CTA HISTORY: Dizziness neuro deficit, acute stroke suspected TECHNIQUE: Multiaxial CT images of the head were performed following the intravenous administration of contrast to evaluate the major cerebral vessels. Multiaxial CT images of the neck were also performed following the intravenous administration of contrast to evaluate the major cervical vessels. 3D/MIP images were also obtained. Sagittal and coronal reformats were reviewed. A dose lowering technique was utilized adhering to the principles of ALARA. COMPARISON: Head CT 01/29/2024. CT neck 10/08/2023. FINDINGS: There is no mass, hematoma, midline shift, or acute infarct. Visualized intra cranial internal carotid arteries, distal vertebral arteries, and basilar artery are widely patent. There is no significant stenosis, occlusion, or aneurysm seen within the bilateral ACAs, MCAs, or board lining machine operator. . The major dural venous sinuses are patent. The aortic arch and proximal great vessels are widely patent. There is no significant stenosis, occlusion, or dissection identified within the bilateral common carotid, internal carotid, or vertebral arteries. Stable 4.8 cm cystic structure within the right superior mediastinum. IMPRESSION: 1. No significant stenosis, occlusion, or aneurysm within the cowlitz of [place]. 2. No significant stenosis, occlusion, or dissection identified within the carotid or vertebral arteries.. 3. Stable 4.8 cm cystic structure within the right superior mediastinum. ACT 112: Negative or not required by law. Electronically signed by: Zafar March M.D. 01/29/2024 6:10 PM Brain MRI 01/29/24 20:41 Exam(s): MRI HEAD Without Contrast EXAM: MR Head Without Intravenous Contrast CLINICAL HISTORY: dizziness. cva?. TECHNIQUE: Magnetic resonance images of the head/brain without intravenous contrast in multiple planes. COMPARISON: CT Brain 01-29-2024. FINDINGS: Brain: Age-appropriate central and peripheral atrophy. No acute stroke. No focal parenchymal abnormality. No acute hemorrhage. No abnormal extra-axial fluid collection. Minimal scattered supratentorial white matter subcortical and periventricular hyperintensities on FLAIR and T2-weighted images. Ventricles: No midline shift. No ventriculomegaly. Bones/joints: Unremarkable. No acute fracture. Sinuses: Unremarkable as visualized. No acute sinusitis. Mastoid air cells: Right mastoid fluid. Orbits: Unremarkable as visualized. IMPRESSION: No acute stroke or hemorrhage.. Minimal non-specific white matter changes, most commonly seen with small vessel disease. Redemonstrated right mastoid fluid. Electronically signed by: Kailash Griggs M.D. 01/30/24 01:15 AM Cervical Spine MRI 01/29/24 20:41 Exam(s): MRI C SPINE EXAM: MR Cervical Spine Without Intravenous Contrast CLINICAL HISTORY: severe neck pain. TECHNIQUE: Magnetic resonance images of the cervical spine without intravenous contrast in multiple planes. COMPARISON: CTA neck 01/29/2024. FINDINGS: Vertebrae: Maintenance of height of the vertebral bodies. No subluxation. Mild endplate hypertrophic changes at C5-6 with minimal marrow changes. Marrow signal intensity within normal limits. No evidence for fracture. Spinal cord: Caliber and signal intensity of the cervical cord within normal limits. No intraspinal hematoma or collection. Soft tissues: Prevertebral soft tissues are unremarkable. DISCS/SPINAL CANAL/NEURAL FORAMINA: C2-C3: Unremarkable. No significant disc disease. No stenosis. C3-C4: Unremarkable. No significant disc disease. No stenosis. C4-C5: Unremarkable. No significant disc disease. No stenosis. C5-C6: Mild central posterior disc bulge with mild effacement of the ventral thecal sac. Mild central canal stenosis. No neural foraminal stenosis. C6-C7: Mild diffuse posterior disc bulge with mild effacement of the ventral thecal sac with mild central canal stenosis. No neural foraminal stenosis. C7-T1: Unremarkable. No significant disc disease. No stenosis. IMPRESSION: Mild disc degenerative changes at C5-6 and C6-7 as described above. No neural foraminal stenosis. Electronically signed by: Kailash Griggs M.D. 01/30/24 01:19 AM Medications Administered Home Medications Medication Instructions Recorded Confirmed Last Taken famotidine 40 mg tablet 40 mg PO BID PRN 12/12/23 01/29/24 Unknown HEARTBURN/INDIGESTION diazepam 5 mg tablet 2.5 mg PO BID PRN Anxiety 01/29/24 01/29/24 Unknown hydroxyzine HCl 10 mg tablet 10 mg PO Q6 PRN Anxiety 01/29/24 01/29/24 Unknown omeprazole 40 mg capsule,delayed 40 mg PO DAILY 01/29/24 01/29/24 Unknown release Active Medications Generic Name Dose Route Start Last Admin Trade Name Freq PRN Reason Stop Dose Admin Heparin Sodium (Porcine) 5,000 units 01/29/24 22:00 01/30/24 13:52 Heparin Sod 5,000 Unit/0.5 Ml Vial SQ 02/28/24 21:59 5,000 units Q8 KIRSTEN Administration Ondansetron HCl 4 mg 01/29/24 20:41 01/30/24 10:53 Ondansetron Inj 2 Mg/Ml 2 Ml Vial IV 02/28/24 20:40 4 mg Q6H PRN Administration Nausea Pantoprazole Sodium 40 mg 01/30/24 09:00 01/30/24 08:01 Pantoprazole 40 Mg Tab PO 02/29/24 08:59 40 mg DAILY KIRSTEN Administration
[2024-01-31 06:25] LABS: Basophils # (auto) 0.06 K/uL (0.00-0.20); Eosinophils # (auto) 0.16 K/uL (0.00-0.50); Eosinophils % (auto) 2.6 %; Hematocrit (blood only) 45.6 % (37.0-47.0); Hemoglobin 14.8 g/dl (12.0-16.0); Immature Granulocytes # (auto) 0.01 K/uL (0.01-0.20); Immature Granulocytes % (auto) 0.2 %; Lymphocytes # (auto) 2.04 K/uL (1.20-3.40); Lymphocytes % (auto) 33.4 %; Mean Corpuscular Hemoglobin 30.2 pg (25.0-34.0); Mean Corpuscular Hgb Conc 32.5 g/dL (32.0-36.0); Mean Corpuscular Volume 93.1 fL (80.0-100.0); Mean Platelet Volume 10.6 fL (9.4-12.4); Monocytes # (auto) 0.37 K/uL (0.11-0.59); Monocytes % (auto) 6.1 %; Neutrophils # (auto) 3.46 K/uL (1.40-6.50); Neutrophils % (auto) 56.7 %; Platelet Count 280 K/uL (130-400); RDW Coefficient of Variation 13.3 % (11.5-14.5); RDW Standard Deviation 45.6 fL (36.4-46.3)
[2024-01-31 06:32] LABS: BUN Creatinine Ratio 15.6 (10-20); Calcium 9.3 mg/dl (8.6-10.3); Creatinine Clr Calc Pharmacy 68.1 ml/min; Est GFR (African American) 77.7 ml/min; Magnesium 2.1 mg/dl (1.7-2.4); Potassium 4.5 mmol/L (3.5-5.1)
[2024-01-31 07:07] LABS: D Dimer < 190 ug/L FEU (0-500)
--- NOTE | 2024-01-31 09:09 | Cardiology Progress Note ---
Date of Service January 31, 2024 Assessment & Plan (1) Bradycardia: (2) Dizziness: (3) Weakness: Plan Assessment: 53 year old female admitted for stroke work up due to dizziness, visual disturbances and weakness. Found to have symptomatic bradycardia with rates as low as 32 during wake hours. Plan: -Thus far CVA work up has been negative by review of imaging. -Review of telemetry demonstrates profound sinus bradycardia with rates as low as 32 during wake hours. -TSH normal -lyme panel negative. -Echocardiogram shows normal LVEF and wall motion with no significant valvular disease. -discussed patient's symptoms consistent with profound bradycardia and recommendation to consider permanent pacemaker insertion. -Case discussed with Dr. Patrick and will plan for pacemaker insertion tomorrow with Dr. Santana. -Refrain from any AV iva blocking agents. -NPO After midnight. 01/31/2024: -Patient remains NPO in prep for a permeant dual chamber pacemaker insertion with Dr. Santana today -Spouse and hospitalist at bedside to review plan of care. -Will continue to follow and reassess patient's status in the AM Case has been discussed with Dr. Patrick. Further recommendations regarding plan of care as per his assessment. I spent a total of 30 minutes on the date of service in preparation, delivery, documentation of the care provided to the patient excluding any time spent in the performance of separately billed services. MELANIE Shelton [facility] Admission and Anticipated Discharge Date Admission Date: January 29, 2024 Supervising Physician Co-Signing Physician Notes Patient was seen and personally examined. Chart, medications reviewed. Inpatient and outpatient records observed. Full assessment and plan as outlined by advanced provider above. Care and management discussed and endorsed 53-year-old female without prior structural heart disease presenting with several months history of intermittent dizziness and lightheadedness with multiple evaluations unrevealing. Sinus bradycardia observed on outpatient EKG and event monitor pending. Dual-chamber pacemaker scheduled for later today Discussed in detail with patient and I spent a total of 30 minutes on the date of service in preparation, delivery, documentation of the care provided to the patient excluding any time spent in the performance of separately billed services. Subjective 01/31/2024: Patient seen and examined in follow up today. Feeling fair. Complains of profound weakness and fatigue. States that her headache is slightly improved, but continues to endorse a pressure/discomfort radiating up the occipital region of her head. Spouse and Hospitalist team present at time of exam to review plan of care. Denies chest pain, pressure or palpitations, no pre-syncope or syncope, no changes in breathing and no edema. Patient is NPO for Permanent pacemaker placement with Dr. Santana today Labs, vitals, diagnostics, telemetry and documentation reviewed. Telemetry reviewed showing marked sinus bradycardia with rates as low as 32 during wake hours. Range is 32 to 45 bpm. External pacer pads are noted in the event of emergency. Review of Systems Review of Systems: All systems reviewed & are unremarkable except as noted in HPI & below Physical Exam Constitutional: well developed and + thin; no acute distress and not ill appearing Neck: normal visual inspection and trachea midline Respiratory: normal respiratory effort, lungs clear to auscultation Cardiovascular: Rate/Rhythm: + bradycardic Heart Sounds: normal S1 and normal S2; no murmur Vessels: no JVD Extremities: no edema Skin: no rashes, warm and dry Psychiatric: A+Ox3, euthymic affect Results & Data Vital Signs (Past 12 Hours) Vital Signs Temp Pulse Pulse Resp BP Pulse Ox O2 Del Method 01/31/24 08:07 36.7 C 16 124/70 96 Room Air 01/31/24 03:23 36.4 C L 43 L 14 118/64 97 Room Air 01/30/24 22:56 36.9 C 44 L 14 108/69 97 Room Air 01/30/24 22:55 Room Air 01/30/24 21:51 40 L Laboratory Results CBC 01/31/24 Range/Units 05:49 WBC 6.10 (4.8-10.8) K/ul RBC 4.90 (4.20-5.40) M/uL Hgb 14.8 (12.0-16.0) g/dl Hct 45.6 (37.0-47.0) % Plt Count 280 (130-400) K/uL Neut # (Auto) 3.46 (1.40-6.50) K/uL Lymph # (Auto) 2.04 (1.20-3.40) K/uL Sullivan # (Auto) 0.37 (0.11-0.59) K/uL Eos # (Auto) 0.16 (0.00-0.50) K/uL Baso # (Auto) 0.06 (0.00-0.20) K/uL Comprehensive Metabolic Panel 01/31/24 Range/Units 05:49 Sodium 141 (136-145) mmol/L Potassium 4.5 (3.5-5.1) mmol/L Chloride 107 (98-107) mmol/L Carbon Dioxide 29 (21-32) mmol/L BUN 15 (6-23) mg/dl Creatinine 0.96 (0.6-1.2) mg/dl Glucose 103 H (70-99(Fasting)) mg/dl Calcium 9.3 (8.6-10.3) mg/dl Intake and Output 01/30/24 01/31/24 01/31/24 22:59 06:59 14:59 Intake Total 150 / 1150 Balance 150 / 1150 Intake: Oral 150 / 150 Other: Other Intake Source NPO # Unmeasured Voids 1 2 Weight 79 kg Weight Measurement Method Built in [facility]
--- NOTE | 2024-01-31 14:16 | Pre Anesthesia Assessment ---
Date of Service January 31, 2024 Pre Sedation Assessment Vital Signs Temp Pulse Pulse Resp BP Pulse Ox O2 Del Method 01/31/24 11:00 36.7 C 40 L 18 98/64 L 95 Room Air 01/31/24 08:07 36.7 C 16 124/70 96 Room Air 01/31/24 08:00 46 L 01/31/24 03:23 36.4 C L 43 L 14 118/64 97 Room Air 01/30/24 22:56 36.9 C 44 L 14 108/69 97 Room Air 01/30/24 22:55 Room Air 01/30/24 21:51 40 L 01/30/24 19:50 36.6 C 42 L 14 119/59 L 98 Room Air 01/30/24 16:05 36.5 C 44 L 20 113/69 97 Room Air 01/30/24 15:52 54 L Cardiovascular + bradycardic Respiratory normal respiratory effort, lungs clear to auscultation Pre-Sedation Airway Assessment Smoking Status: Current every day smoker Hx Sleep Apnea: No Hx Difficult Intubation: No Short, Thick Neck: No Thyromental Distance: < 3.5 Finger Breadths Oral Cavity: + Dental Abnormalities Mallampati Class: II ASA: ASA3 NPO Status Date of Last Intake of Fluids: 01/30/24 Date of Last Intake of Solid Food: 01/30/24 Procedure Planning Contraindications for Sedation: none Current Medications Reviewed: Yes Notes The planned sedation has been discussed with the patient. Informed Consent was obtained. I have identified the patient, determined the appropriateness of sedation and have assessed the patient immediately prior to the procedure. All medicine(s) and interventions are by my order.
--- NOTE | 2024-01-31 14:17 | History & Physical Bridge Note ---
Date of Service January 31, 2024 History & Physical Bridge Note I have examined the patient, reviewed the History & Physical and in the interval since the performance of the History & Physical I have noted the following changes of clinical significance: pt with SSS recommended a dual chamber pacemaker prior to hospital discharge; discussed the procedure and potential risks with the pt and consents signed.
--- NOTE | 2024-01-31 15:41 | Post Anesthesia Assessment ---
Date of Service January 31, 2024 Post Sedation Assessment Vital Signs Temp Pulse Pulse Pulse Resp BP Pulse Ox 01/31/24 14:28 60 16 136/71 97 01/31/24 11:00 36.7 C 40 L 18 98/64 L 95 01/31/24 08:07 36.7 C 16 124/70 96 01/31/24 08:00 46 L 01/31/24 03:23 36.4 C L 43 L 14 118/64 97 01/30/24 22:56 36.9 C 44 L 14 108/69 97 01/30/24 22:55 01/30/24 21:51 40 L 01/30/24 19:50 36.6 C 42 L 14 119/59 L 98 01/30/24 16:05 36.5 C 44 L 20 113/69 97 01/30/24 15:52 54 L O2 Del Method 01/31/24 14:28 Room Air 01/31/24 11:00 Room Air 01/31/24 08:07 Room Air 01/31/24 08:00 01/31/24 03:23 Room Air 01/30/24 22:56 Room Air 01/30/24 22:55 Room Air 01/30/24 21:51 01/30/24 19:50 Room Air 01/30/24 16:05 Room Air 01/30/24 15:52 Recovery Score Activity: Moves 4 extremities Respiration: Deep Breath/Cough Circulation: +/-20% PreAnes Value Consciousness: Fully Awake Oxygen Saturation: > 92% On Room Air Discharge Sedation Level of Care: Fast Track Phase II Post Sedation Plan On clinical assessment, the patient appears to have tolerated the sedation without complications. Patient is recovering as anticipated. Patient will continue to be monitored by nursing and may be discharged when sedation discharge criteria are met per below protocol. Upon Completions of procedure up to 15 minutes continue every 5 minute vital signs and the P.A.R. score; then discharge to a Phase I or Fast Track to Phase II per the following guidelines: * Discharge Patient to appropriate Phase II area if PAR is 8 or greater or return to pre- procedure baseline. The post - procedure orders will be as directed. * If PAR score is less than 8 or not return to pre-procedure baseline then patient will follow Phase I monitoring till PAR is reached for Phase II. The Phase I may be done in procedure room or may call to secure a Phase I area. * If naloxone or flumazenil are used for reversal, hold in Phase I for continued monitoring from when last reversal dose was given for a minimum of 60 minutes or longer pending the nurse and/or physician discretion of patient condition before discharge to Phase II. Please call the Sedation Physician to re-evaluate and complete post-note for discharge to Phase II area. Do NOT discharge from procedure sedation or Phase 1 until post- sedation evalu ation note is complete by procedure /sedation MD Sedation Discharge Instructions to be given to the patient at discharge to home.
[2024-01-31] MEDS: fentaNYL citrate PF 100 MCG/2 ML VIAL ONE ×2 (15:42→15:43)
[2024-01-31] MEDS: WATER, STERILE FOR INJ 10 ML VIAL ONE (15:42)
[2024-01-31] MEDS: BUPIVACAINE 0.25% PF 30 ML VIAL ONE (15:42)
[2024-01-31] MEDS: ceFAZolin 330 MG/ML 1 GM VIAL ONE (15:42)
[2024-01-31] MEDS: VANCOMYCIN HCL 1000MG/20ML VIAL ONE (15:42)
[2024-01-31] MEDS: MIDAZOLAM HCL 1 MG/ML 2ML VIAL ONE (15:43)
[2024-01-31] MEDS: MIDAZOLAM HCL 5 MG/ML 1 ML VIAL ONE (15:43)
[2024-01-31] MEDS: diphenhydrAMINE 50 MG/ML VIAL ONE (15:44)
[2024-01-31] MEDS: ACETAMINOPHEN 325 MG TAB PO PRN (16:38)
--- NOTE | 2024-01-31 16:45 | Hospitalist Progress Note ---
Date of Service January 31, 2024 Assessment & Plan (1) Dizziness: Plan: In summation, 53-year-old female with past medical significant for bradycardia, mediastinal mass, GERD, colitis, chronic gastritis, squamous cell carcinoma face, neck pain, tobacco use, generalized anxiety disorder admitted with ongoing dizziness, weakness. Dizziness Presents with intermittent dizziness ongoing for several months Evaluated by outpatient neurology who recommended further workup to rule out CVA --Brain MRI:No acute stroke or hemorrhage. Minimal non-specific white matter changes, most commonly seen with small vessel disease. Redemonstrated right mastoid fluid. --Cervical MRI:Mild disc degenerative changes at C5-6 and C6-7 as described above. No neural foraminal stenosis. --Head/Neck CTA:No significant stenosis, occlusion, or aneurysm within the [place]. No significant stenosis, occlusion, or dissection identified within the carotid or vertebral arteries.Stable 4.8 cm cystic structure within the right superior mediastinum. --ECHO: Sinus bradycardia. Left ventricle is normal in size. Normal left ventricle wall thickness. Left ventricle wall motion normal. EF 60 to 65%. No significant valvular disease. Interatrial septum is intact. -- Check orthostatics Neurology consulted Sinus bradycardia TSH normal Lyme screen negative Echo as above Avoid AV iva blocking agents Appreciate cardiology input Patient is status post permanent pacemaker today Continue to monitor and observe Most likely will be able to discharge tomorrow Mediastinal cyst Incidental finding on CT Further workup as outpatient H/O Colitis Weight loss Planned for EGD and colonoscopy per GI Right mastoid effusion Likely chronic ENT consulted Gastritis Continue pantoprazole Anxiety on Diazepam as needed. 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 Complex migraine Imaging studies showed no acute CVA Will need follow-up with ophthalmology as outpatient Cervicalgia Chronic Likely due to degenerative disc disease Monitor DVT Px: Heparin SQ CODE STATUS Full code Admission and Anticipated Discharge Date Admission Date: January 29, 2024 Subjective 01/31/2024: Patient seen and examined early this a.m. at bedside. 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 She is fatigued. Complains of profound weakness. Still has some occipital discomfort. She does have a history of migraines. Patient is NPO for Permanent pacemaker placement with Dr. Santana today Labs, vitals, diagnostics, telemetry and documentation reviewed. Telemetry reviewed showing marked sinus bradycardia with very low rates in the 30s. Review of Systems Review of Systems: Constitutional- no fever; no weight loss, profound fatigue at times Eyes- no acute visual changes ENT- no sinus drainage; no pharyngitis Pulmonary- no cough, no wheezing, no shortness of breath Cardiac- no chest pain, no palpitations, no orthopnea, no dependent edema GI- no nausea, no vomiting, no diarrhea, no melena, no hematochezia - no dysuria, no hematuria Musculoskeletal- no arthralgias, no myalgias Derm- no rashes, no new skin lesions, no changing skin lesions Hematologic- no unusual bruising, no unusual bleeding Lymphatics- no adenopathy Endocrine- no polyuria or polydipsia; no heat or cold intolerance Neuro- no headaches, no focal neurologic symptoms Psych- no anxiety, no depression Physical Exam Physical Exam: NEEDS EDITING Qarfyco-gpyyhn-spvj female seen sitting in bed Head- atraumatic Eyes- PERRL, EOMI, anicteric ENT- oropharynx clear Neck- supple, no JVD, no adenopathy, no thyromegaly; carotids +2/2, no bruits appreciated Lungs- clear to auscultation and percussion Heart- regular rhythm, rate is 36; no murmur, no gallop, no rub appreciated Abdomen- normal bowel sounds, soft, nontender, no masses or hepatosplenomegaly Extremities- no pretibial edema, no calf tenderness; peripheral pulses intact Neuro- alert, oriented x 3; PERRL, EOMI; no facial palsy; no dysarthria; motor 5/5 bilaterally; no cogwheel rigidity; patellar DTRs +2/2; toes downgoing bilaterally; finger to nose intact bilaterally Skin- warm & dry Results & Data Results & Data Vital Signs (Past 12 Hours) Vital Signs Temp Pulse Pulse Pulse Resp BP Pulse Ox 01/31/24 16:07 60 14 142/79 H 94 01/31/24 15:50 63 14 142/79 H 97 01/31/24 14:28 60 16 136/71 97 01/31/24 11:00 36.7 C 40 L 18 98/64 L 95 01/31/24 08:07 36.7 C 16 124/70 96 01/31/24 08:00 46 L O2 Del Method 01/31/24 16:07 Room Air 01/31/24 15:50 Room Air 01/31/24 14:28 Room Air 01/31/24 11:00 Room Air 01/31/24 08:07 Room Air 01/31/24 08:00 Laboratory Results Laboratory Results WBC 6.10 K/ul (4.8-10.8) 01/31/24 05:49 RBC 4.90 M/uL (4.20-5.40) 01/31/24 05:49 Hgb 14.8 g/dl (12.0-16.0) 01/31/24 05:49 Hct 45.6 % (37.0-47.0) 01/31/24 05:49 MCV 93.1 fL (80.0-100.0) 01/31/24 05:49 MCH 30.2 pg (25.0-34.0) 01/31/24 05:49 MCHC 32.5 g/dL (32.0-36.0) 01/31/24 05:49 RDW Std Deviation 45.6 fL (36.4-46.3) 01/31/24 05:49 RDW Coeff of Rosita 13.3 % (11.5-14.5) 01/31/24 05:49 Plt Count 280 K/uL (130-400) 01/31/24 05:49 MPV 10.6 fL (9.4-12.4) 01/31/24 05:49 Immature Gran % (Auto) 0.2 % 01/31/24 05:49 Neut % (Auto) 56.7 % 01/31/24 05:49 Lymph % (Auto) 33.4 % 01/31/24 05:49 [place] % (Auto) 6.1 % 01/31/24 05:49 Eos % (Auto) 2.6 % 01/31/24 05:49 Baso % (Auto) 1.0 % 01/31/24 05:49 Neut # (Auto) 3.46 K/uL (1.40-6.50) 01/31/24 05:49 Lymph # (Auto) 2.04 K/uL (1.20-3.40) 01/31/24 05:49 [place] # (Auto) 0.37 K/uL (0.11-0.59) 01/31/24 05:49 Eos # (Auto) 0.16 K/uL (0.00-0.50) 01/31/24 05:49 Baso # (Auto) 0.06 K/uL (0.00-0.20) 01/31/24 05:49 Immature Gran # (Auto) 0.01 K/uL (0.01-0.20) 01/31/24 05:49 RBC Morphology Unremarkable 01/30/24 05:34 PT 10.9 Seconds (9.0-12.0) 01/29/24 16:00 INR 1.0 (0.9-1.1) 01/29/24 16:00 APTT 29 Seconds (21-31) 01/29/24 16:00 PTT Ratio 1.1 01/29/24 16:00 D-Dimer < 190 ug/L FEU (0-500) 01/31/24 05:49 Sodium 141 mmol/L (136-145) 01/31/24 05:49 Potassium 4.5 mmol/L (3.5-5.1) 01/31/24 05:49 Chloride 107 mmol/L (98-107) 01/31/24 05:49 Carbon Dioxide 29 mmol/L (21-32) 01/31/24 05:49 Anion Gap 5 (3-11) 01/31/24 05:49 BUN 15 mg/dl (6-23) 01/31/24 05:49 Creatinine 0.96 mg/dl (0.6-1.2) 01/31/24 05:49 Est Cr Clr Drug Dosing 68.1 ml/min 01/31/24 05:49 Est GFR ( Amer) 77.7 ml/min 01/31/24 05:49 Est GFR (Non-Af Amer) 67.0 ml/min 01/31/24 05:49 BUN/Creatinine Ratio 15.6 (10-20) 01/31/24 05:49 Glucose 103 mg/dl (70-99(Fasting)) H 01/31/24 05:49 POC Glucose 91 mg/dl (70-99) 01/31/24 11:05 Estimat Average Glucose 128 mg/dl 01/30/24 05:34 Hemoglobin A1c 6.1 % (4.5-5.6) H 01/30/24 05:34 Calcium 9.3 mg/dl (8.6-10.3) 01/31/24 05:49 Magnesium 2.1 mg/dl (1.7-2.4) 01/31/24 05:49 Total Bilirubin 0.5 mg/dl (0.2-1.0) 01/29/24 16:00 AST 18 U/L (13-39) 01/29/24 16:00 ALT 15 U/L (7-52) 01/29/24 16:00 Alkaline Phosphatase 81 U/L (34-104) 01/29/24 16:00 Troponin I High Sens 4.3 pg/ml (0-14) 01/29/24 16:00 Total Protein 8.0 gm/dl (6.0-8.3) 01/29/24 16:00 Albumin 4.9 gm/dl (3.4-5.0) 01/29/24 16:00 Globulin 3.1 gm/dl (2.5-4.0) 01/29/24 16:00 Albumin/Globulin Ratio 1.6 (0.9-2) 01/29/24 16:00 Triglycerides 131 mg/dl (0-150) 01/30/24 05:34 Cholesterol 167 mg/dl (0-200) 01/30/24 05:34 LDL Cholesterol, Calc 104 mg/dl 01/30/24 05:34 VLDL Cholesterol, Calc 26 mg/dl (0-30) 01/30/24 05:34 HDL Cholesterol 37 mg/dl 01/30/24 05:34 Cholesterol/HDL Ratio 4.5 (0-5) 01/30/24 05:34 Urine Color Yellow 01/29/24 16:00 Urine Appearance Clear (Clear) 01/29/24 16:00 Urine pH 6.5 (4.5-7.5) 01/29/24 16:00 Ur Specific [place] 1.006 (1.000-1.030) 01/29/24 16:00 Urine Protein Negative (Negative) 01/29/24 16:00 Urine Glucose (UA) Negative (Negative) 01/29/24 16:00 Urine Ketones Negative (Negative) 01/29/24 16:00 Urine Blood Trace (Negative) H 01/29/24 16:00 Urine Nitrite Negative (Negative) 01/29/24 16:00 Urine Bilirubin Negative (Negative) 01/29/24 16:00 Urine Urobilinogen Negative (Negative) 01/29/24 16:00 Ur Leukocyte Esterase Negative (Negative) 01/29/24 16:00 Urine WBC (Auto) 0-5 /hpf (0-5) 01/29/24 16:00 Urine RBC (Auto) 0-2 /hpf (0-2) 01/29/24 16:00 U Hyaline Cast (Auto) 0-2 /lpf (0-2) 01/29/24 16:00 U Epithel Cells (Auto) 0-2 /hpf (0-2) 01/29/24 16:00 Urine Bacteria (Auto) None Seen (None Seen) 01/29/24 16:00 Lyme Disease Screen Negative (Negative) 01/29/24 16:[address] 01/29/24 16:[address] DOSE: HISTORY: Dizziness. neuro deficit, acute stroke suspected TECHNIQUE: Multiaxial CT images of the head were performed without the use of intravenous contrast. Automated exposure control was utilized for this study. A dose lowering technique was utilized adhering to the principles of ALARA. Comparison: Head CT 01/01/2024. Findings: Stable chronic right mastoid effusion. The paranasal sinuses and left mastoid air cells are clear. The calvarium and skull base are intact. The ventricles and sulci are within normal limits. There is no mass, hematoma, midline shift, or acute infarct. Impression: No acute intracranial abnormality. Stable chronic right mastoid effusion. ACT 112: Negative or not required by law. Electronically signed by: Zafar March M.D. 01/29/2024 6:02 PM Head CTA 01/29/24 16:24 HEAD & NECK CTA HISTORY: Dizziness neuro deficit, acute stroke suspected TECHNIQUE: Multiaxial CT images of the head were performed following the intravenous administration of contrast to evaluate the major cerebral vessels. Multiaxial CT images of the neck were also performed following the intravenous administration of contrast to evaluate the major cervical vessels. 3D/MIP images were also obtained. Sagittal and coronal reformats were reviewed. A dose low ering technique was utilized adhering to the principles of ALARA. COMPARISON: Head CT 01/29/2024. CT neck 10/08/2023. FINDINGS: There is no mass, hematoma, midline shift, or acute infarct. Visualized intracranial internal carotid arteries, distal vertebral arteries, and basilar artery are widely patent. There is no significant stenosis, occlusion, or aneurysm seen within the bilateral ACAs, MCAs, or poker manager. . The major dural venous sinuses are patent. The aortic arch and proximal great vessels are widely patent. There is no significant stenosis, occlusion, or dissection identified within the bilateral common carotid, internal carotid, or vertebral arteries. Stable 4.8 cm cystic structure within the right superior mediastinum. IMPRESSION: 1. No significant stenosis, occlusion, or aneurysm within the [place]. 2. No significant stenosis, occlusion, or dissection identified within the carotid or vertebral arteries.. 3. Stable 4.8 cm cystic structure within the right superior mediastinum. ACT 112: Negative or not required by law. Electronically signed by: Zafar March M.D. 01/29/2024 6:10 PM Neck CTA 01/29/24 16:24 HEAD & NECK CTA HISTORY: Dizziness neuro deficit, acute stroke suspected TECHNIQUE: Multiaxial CT images of the head were performed following the intravenous administration of contrast to evaluate the major cerebral vessels. Multiaxial CT images of the neck were also performed following the intravenous administration of contrast to evaluate the major cervical vessels. 3D/MIP images were also obtained. Sagittal and coronal reformats were reviewed. A dose lowering technique was utilized adhering to the principles of ALARA. COMPARISON: Head CT 01/29/2024. CT neck 10/08/2023. FINDINGS: There is no mass, hematoma, midline shift, or acute infarct. Visualized intracranial internal carotid arteries, distal vertebral arteries, and basilar artery are widely patent. There is no significant stenosis, occlusion, or aneurysm seen within the bilateral ACAs, MCAs, or poker manager. . The major dural venous sinuses are patent. The aortic arch and proximal great vessels are widely patent. There is no significant stenosis, occlusion, or dissection identified within the bilateral common carotid, internal carotid, or vertebral arteries. Stable 4.8 cm cystic structure within the right superior mediastinum. IMPRESSION: 1. No significant stenosis, occlusion, or aneurysm within the [place]. 2. No significant stenosis, occlusion, or dissection identified within the carotid or vertebral arteries.. 3. Stable 4.8 cm cystic structure within the right superior mediastinum. ACT 112: Negative or not required by law. Electronically signed by: Zafar March M.D. 01/29/2024 6:10 PM Brain MRI 01/29/24 20:41 Exam(s): MRI HEAD Without Contrast EXAM: MR Head Without Intravenous Contrast CLINICAL HISTORY: dizziness. cva?. TECHNIQUE: Magnetic resonance images of the head/brain without intravenous contrast in multiple planes. COMPARISON: CT Brain 01-29-2024. FINDINGS: Brain: Age-appropriate central and peripheral atrophy. No acute stroke. No focal parenchymal abnormality. No acute hemorrhage. No abnormal extra-axial fluid collection. Minimal scattered supratentorial white matter subcortical and periventricular hyperintensities on FLAIR and T2-weighted images. Ventricles: No midline shift. No ventriculomegaly. Bones/joints: Unremarkable. No acute fracture. Sinuses: Unremarkable as visualized. No acute sinusitis. Mastoid air cells: Right mastoid fluid. Orbits: Unremarkable as visualized. IMPRESSION: No acute stroke or hemorrhage.. Minimal non-specific white matter changes, most commonly seen with small vessel disease. Redemonstrated right mastoid fluid. Electronically signed by: Kailash Griggs M.D. 01/30/24 01:15 AM Cervical Spine MRI 01/29/24 20:41 Exam(s): MRI C SPINE EXAM: MR Cervical Spine Without Intravenous Contrast CLINICAL HISTORY: severe neck pain. TECHNIQUE: Magnetic resonance images of the cervical spine without intravenous contrast in multiple planes. COMPARISON: CTA neck 01/29/2024. FINDINGS: Vertebrae: Maintenance of height of the vertebral bodies. No subluxation. Mild endplate hypertrophic changes at C5-6 with minimal marrow changes. Marrow signal intensity within normal limits. No evidence for fracture. Spinal cord: Caliber and signal intensity of the cervical cord within normal limits. No intraspinal hematoma or collection. Soft tissues: Prevertebral soft tissues are unremarkable. DISCS/SPINAL CANAL/NEURAL FORAMINA: C2-C3: Unremarkable. No significant disc disease. No stenosis. C3-C4: Unremarkable. No significant disc disease. No stenosis. C4-C5: Unremarkable. No significant disc disease. No stenosis. C5-C6: Mild central posterior disc bulge with mild effacement of the ventral thecal sac. Mild central canal stenosis. No neural foraminal stenosis. C6-C7: Mild diffuse posterior disc bulge with mild effacement of the ventral thecal sac with mild central canal stenosis. No neural foraminal stenosis. C7-T1: Unremarkable. No significant disc disease. No stenosis. IMPRESSION: Mild disc degenerative changes at C5-6 and C6-7 as described above. No neural foraminal stenosis. Electronically signed by: Kailash Griggs M.D. 01/30/24 01:19 AM Medications Administered Current Inpatient Medications Acetaminophen (Acetaminophen 325 Mg Tab) 650 mg PO Q4H PRN PRN Reason: Pain or Fever Stop: 02/28/24 20:40 Last Admin: 01/31/24 16:38 Dose: 650 mg Diazepam (Diazepam 5 Mg Tablet) 2.5 mg PO BID PRN PRN Reason: Anxiety Stop: 02/28/24 20:40 Famotidine (Famotidine 40 Mg Tablet) 40 mg PO BID PRN PRN Reason: HEARTBURN/INDIGESTION Stop: 02/28/24 20:40 Heparin Sodium (Porcine) (Heparin Sod 5,000 Unit/0.5 Ml Vial) 5,000 units SQ Q8 KIRSTEN Stop: 02/28/24 21:59 Last Admin: 01/31/24 14:17 Dose: Not Given Melatonin (Melatonin 3 Mg Tab) 3 mg PO HS PRN PRN Reason: Sleep Stop: 02/28/24 23:56 Ondansetron HCl (Ondansetron Inj 2 Mg/Ml 2 Ml Vial) 4 mg IV Q6H PRN PRN Reason: Nausea Stop: 02/28/24 20:40 Last Admin: 01/30/24 10:53 Dose: 4 mg Pantoprazole Sodium (Pantoprazole 40 Mg Tab) 40 mg PO DAILY KIRSTEN Stop: 02/29/24 08:59 Last Admin: 01/31/24 08:30 Dose: 40 mg Polyethylene Glycol (Polyethylene (Miralax) 17 Gm Pack) 17 gm PO DAILY PRN PRN Reason: Constipation Stop: 02/28/24 20:40
--- NOTE | 2024-01-31 18:03 | XRay Report ---
XR chest 1V portable HISTORY: 53 years-old Female s/p ppm ensure no PTX status post placement of a left subclavian pacer COMPARISON: 01/22/2024 TECHNIQUE: AP view of the chest FINDINGS: Cardiac silhouette is enlarged. Dual lead left subclavian pacer has been placed. No postprocedural pn eumothorax identified. No pleural effusion or airspace consolidation. Bones appear grossly intact. IMPRESSION: No postprocedural pneumothorax. ACT 112: Negative or not required by law. The above report was generated using voice recognition software. It may contain grammatical, syntax o r spelling errors. Electronically signed by: Chavo Allen M.D. 01/31/2024 6:01 PM
[2024-02-01] MEDS: MELATONIN 3 MG TAB PO PRN (02:47)
[2024-02-01 07:40] LABS: Basophils # (auto) 0.05 K/uL (0.00-0.20); Basophils % (auto) 0.9 %; Eosinophils # (auto) 0.17 K/uL (0.00-0.50); Hematocrit (blood only) 44.5 % (37.0-47.0); Immature Granulocytes # (auto) 0.02 K/uL (0.01-0.20); Immature Granulocytes % (auto) 0.4 %; Lymphocytes # (auto) 1.73 K/uL (1.20-3.40); Lymphocytes % (auto) 30.8 %; Mean Corpuscular Hemoglobin 30.7 pg (25.0-34.0); Mean Corpuscular Hgb Conc 33.7 g/dL (32.0-36.0); Mean Platelet Volume 10.7 fL (9.4-12.4); Monocytes # (auto) 0.31 K/uL (0.11-0.59); Monocytes % (auto) 5.5 %; Neutrophils # (auto) 3.34 K/uL (1.40-6.50); Neutrophils % (auto) 59.4 %; Platelet Count 278 K/uL (130-400); RDW Standard Deviation 43.7 fL (36.4-46.3); Red Blood Count 4.89 M/uL (4.20-5.40); White Blood Count 5.62 K/ul (4.8-10.8)
[2024-02-01 08:02] LABS: BUN Creatinine Ratio 18.1 (10-20); Calcium 9.3 mg/dl (8.6-10.3); Creatinine Clr Calc Pharmacy 68.4 ml/min; Est GFR (African American) 79.7 ml/min; Est GFR (Non-African American) 68.8 ml/min; Potassium 4.5 mmol/L (3.5-5.1)
[2024-02-01] MEDS: FAMOTIDINE 40 MG TABLET PO PRN (08:38)
--- NOTE | 2024-02-01 12:02 | Electrocardiogram Report ---
Test Reason : Blood Pressure : */* mmHG Vent. Rate : 60 BPM Atrial Rate : 60 BPM P-R Int : 170 ms QRS Dur : 80 ms QT Int : 430 ms P-R-T Axes : 19 26 41 degrees QTcB Int : 430 ms Atrial-paced rhythm Abnormal ECG When compared with ECG of 30-Jan-2024 01:30, Electronic atrial pacemaker has replaced Sinus rhythm Confirmed by Unruly Miller ([id number]) on 02/01/2024 12:01:47 PM Referred By: REFERRED SELF Confirmed By: Unruly Miller
--- NOTE | 2024-02-01 12:22 | Cardiology Progress Note ---
Date of Service February 01, 2024 Assessment & Plan (1) Bradycardia: (2) Dizziness: (3) Weakness: Plan Assessment: 53 year old female admitted for stroke work up due to dizziness, visual disturbances and weakness. Found to have symptomatic bradycardia with rates as low as 32 during wake hours. Plan: -Thus far CVA work up has been negative by review of imaging. -Review of telemetry demonstrates profound sinus bradycardia with rates as low as 32 during wake hours. -TSH normal -lyme panel negative. -Echocardiogram shows normal LVEF and wall motion with no significant valvular disease. -discussed patient's symptoms consistent with profound bradycardia and recommendation to consider permanent pacemaker insertion. -Case discussed with Dr. Patrick and will plan for pacemaker insertion tomorrow with Dr. Santana. -Refrain from any AV iva blocking agents. -NPO After midnight. 01/31/2024: -Patient remains NPO in prep for a permeant dual chamber pacemaker insertion with Dr. Santana today -Spouse and hospitalist at bedside to review plan of care. -Will continue to follow and reassess patient's status in the AM Case has been discussed with Dr. Patrick. Further recommendations regarding plan of care as per his assessment. I spent a total of 30 minutes on the date of service in preparation, delivery, documentation of the care provided to the patient excluding any time spent in the performance of separately billed services. MELANIE Shelton [facility] Cardiology [facility] 02/01/2024 Patient underwent dual-chamber pacemaker for symptomatic bradycardia with appropriate device function. Will arrange outpatient follow-up through device clinic Recommend increasing activities in hospital. Stable from cardiac standpoint Admission and Anticipated Discharge Date Admission Date: January 29, 2024 Subjective Patient was seen and examined, chart, medications, telemetry reviewed. Intermittently atrially paced. Heart rates have improved since pacemaker inserted. No chest pains. Only incisional discomfort. Mild dizziness present but no acute neck pain or headache No fevers or chills. Pacemaker functioning appropriately on telemetry Review of Systems Review of Systems: All systems reviewed & are unremarkable except as noted in Subjective Physical Exam Constitutional: well developed and + thin; no acute distress and not ill appearing ENMT: Mallampati Class: II Neck: normal visual inspection and trachea midline Respiratory: normal respiratory effort, lungs clear to auscultation Cardiovascular: Rate/Rhythm: regular rate and regular rhythm Heart Sounds: normal S1, normal S2 and + murmur Vessels: no JVD Extremities: no edema Chest (Breasts): Chest: + pacemaker (Incision site without hematoma or erythema) Musculoskeletal: no cyanosis or clubbing, extremities motor strength 5/5 Skin: no rashes, warm and dry Psychiatric: A+Ox3, euthymic affect Results & Data Vital Signs (Past 12 Hours) Vital Signs Temp Pulse Resp BP BP Pulse Ox O2 Del Method 02/01/24 10:42 36.4 C L 60 20 121/81 96 Room Air 02/01/24 08:32 36.4 C L 60 18 117/76 98 Room Air 02/01/24 02:44 36.4 C L 60 18 135/85 99 Room Air Laboratory Results Laboratory Results - last 24 hr 02/01/24 02/01/24 02:49 06:55 WBC 5.62 RBC 4.89 Hgb 15.0 Hct 44.5 MCV 91.0 MCH 30.7 MCHC 33.7 RDW Std Deviation 43.7 RDW Coeff of Rosita 13.0 Plt Count 278 MPV 10.7 Immature Gran % (Auto) 0.4 Neut % (Auto) 59.4 Lymph % (Auto) 30.8 [place] % (Auto) 5.5 Eos % (Auto) 3.0 Baso % (Auto) 0.9 Neut # (Auto) 3.34 Lymph # (Auto) 1.73 [place] # (Auto) 0.31 Eos # (Auto) 0.17 Baso # (Auto) 0.05 Immature Gran # (Auto) 0.02 Sodium 140 Potassium 4.5 Chloride 105 Carbon Dioxide 29 Anion Gap 6 BUN 17 Creatinine 0.94 Est Cr Clr Drug Dosing 68.4 Est GFR ( Amer) 79.7 Est GFR (Non-Af Amer) 68.8 BUN/Creatinine Ratio 18.1 Glucose 105 H POC Glucose 103 H Calcium 9.3
[2024-02-01] MEDS: MECLIZINE 12.5 MG TAB PO PRN (13:04)
--- NOTE | 2024-02-01 15:29 | Discharge Summary ---
Discharge Summary Date of Service February 01, 2024 Principal Dx & Hospital Course #1 = Principal Diagnosis (1) Dizziness: In summation, 53-year-old female with past medical significant for bradycardia, mediastinal mass, GERD, colitis, chronic gastritis, squamous cell carcinoma face, neck pain, tobacco use, generalized anxiety disorder admitted with ongoing dizziness, weakness. Dizziness Presents with intermittent dizziness ongoing for several months Evaluated by outpatient neurology who recommended further workup to rule out CVA --Brain MRI:No acute stroke or hemorrhage. Minimal non-specific white matter changes, most commonly seen with small vessel disease. Redemonstrated right mastoid fluid. --Cervical MRI:Mild disc degenerative changes at C5-6 and C6-7 as described above. No neural foraminal stenosis. --Head/Neck CTA:No significant stenosis, occlusion, or aneurysm within the [place]. No significant stenosis, occlusion, or dissection identified within the carotid or vertebral arteries.Stable 4.8 cm cystic structure within the right superior mediastinum. --ECHO: Sinus bradycardia. Left ventricle is normal in size. Normal left ventricle wall thickness. Left ventricle wall motion normal. EF 60 to 65%. No significant valvular disease. Interatrial septum is intact. -- Check orthostatics Neurology consulted Symptomatic sinus bradycardia TSH normal Lyme screen negative Echo done Avoid AV iva blocking agents Cardiology consulted. PPM recommended Patient is status post permanent pacemaker on 01/30 Mediastinal cyst Incidental finding on CT Further workup as outpatient H/O Colitis Weight loss Planned for EGD and colonoscopy per GI Right mastoid effusion Likely chronic ENT consulted Gastritis Continue pantoprazole Anxiety on Diazepam as needed. 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 Complex migraine Imaging studies showed no acute CVA Will need follow-up with ophthalmology as outpatient Cervicalgia Chronic Likely due to degenerative disc disease Monitor DVT Px: Heparin SQ CODE STATUS Full code Notes For Next Care Provider Follow-up with cardiology in 1 week for pacemaker check and wound check Medication Changes From Visit q Admission HPI Per Admitting Provider 53-year-old female with past medical significant for bradycardia, mediastinal mass, GERD, colitis, chronic gastritis, squamous cell carcinoma face, neck pain, tobacco use, generalized anxiety disorder, ongoing dizziness was seen by neurology today and was advised for stroke workup. Patient states she is having on and off dizziness since last July. And also seeing some black spots on the right peripheral vision for several weeks. On and off headaches. Today headache is somewhat more severe. Has some nausea. Lost about 40 pounds in the last several months. Ambulates okay. No fevers. No runny nose or sore throat. States right ear has fluid. Has heartburn symptoms. Seems CT scan done recently showed colitis and was seen by GI few days back. GI is planning to do EGD and colonoscopy. Currently no abdominal pain. She had diarrhea but that got resolved today. No blood in the stools. Normal bladder movements. She also noted to have bradycardia and she has Zio patch placed. She also feeling hot and cold symptoms. Has chronic neck pain. Today she felt [id number] in left shoulder and left arm. Past medical history. As mentioned above. Past surgical history. Vaginal hysterectomy. Social history. . Smokes 0.8 packs a day for last 39 years no alcohol's. No drug use currently. Family history. Maternal grandfather had stroke. Mother had stroke. Admission Exam Per Admitting Provider Physical Exam Physical Exam: General-Not in distress Head- atraumatic Eyes- PERRL, EOMI, anicteric ENT- oropharynx clear Neck- supple, no JVD Lungs- clear to auscultation no wheezing or crackles Heart- regular rhythm bradycardia ; no murmur. Abdomen- normal bowel sounds, soft, nontender, no distension Extremities- pretibial edema present, no obvious erythema seen. Neuro- alert, oriented PERRL,no facial palsy; no dysarthria; motor 5/5 bilaterally; no pronator drift, co ordination of movements normal, sensations and position sense intact. Skin- warm & dry Discharge Exam Physical Exam Physical Exam: [id number] female seen sitting in bed Head- atraumatic Eyes- PERRL, EOMI, anicteric ENT- oropharynx clear. TMs and canals are clear Neck- supple, no JVD, no adenopathy, no thyromegaly; carotids +2/2, no bruits appreciated Lungs- clear to auscultation and percussion Heart- regular rhythm, rate is 76; Abdomen- normal bowel sounds, soft, nontender, no masses or hepatosplenomegaly Extremities- no pretibial edema, no calf tenderness; peripheral pulses intact Neuro- alert, oriented x 3; PERRL, EOMI; Skin- warm & dry Updated Medication List Medication Instructions Recorded Confirmed Type famotidine 40 mg tablet 40 mg PO BID PRN 12/12/23 01/29/24 History HEARTBURN/INDIGESTION diazepam 5 mg tablet 2.5 mg PO BID PRN Anxiety 01/29/24 01/29/24 History hydroxyzine HCl 10 mg tablet 10 mg PO Q6 PRN Anxiety 01/29/24 01/29/24 History omeprazole 40 mg capsule,delayed 40 mg PO DAILY 01/29/24 01/29/24 History release Hospital Stay Data Consultations 01/29/24 19:32 ED Decision to Admit Stat 01/30/24 08:00 Consult Cardiology Routine Consult Neurology Routine Consult Otolaryngology (Head and Neck) Routine Procedures Performed Operation Date: 01/31/24 12:30 Actual Procedures p Pacer with A/V Leads (Dual) - Sommer Santana DO s Venogram, Unilateral - Sommer Santana DO Diagnostic Imagining Performed Laboratory Results WBC 5.62 K/ul (4.8-10.8) 02/01/24 06:55 RBC 4.89 M/uL (4.20-5.40) 02/01/24 06:55 Hgb 15.0 g/dl (12.0-16.0) 02/01/24 06:55 Hct 44.5 % (37.0-47.0) 02/01/24 06:55 MCV 91.0 fL (80.0-100.0) 02/01/24 06:55 MCH 30.7 pg (25.0-34.0) 02/01/24 06:55 MCHC 33.7 g/dL (32.0-36.0) 02/01/24 06:55 RDW Std Deviation 43.7 fL (36.4-46.3) 02/01/24 06:55 RDW Coeff of Rosita 13.0 % (11.5-14.5) 02/01/24 06:55 Plt Count 278 K/uL (130-400) 02/01/24 06:55 MPV 10.7 fL (9.4-12.4) 02/01/24 06:55 Immature Gran % (Auto) 0.4 % 02/01/24 06:55 Neut % (Auto) 59.4 % 02/01/24 06:55 Lymph % (Auto) 30.8 % 02/01/24 06:55 [place] % (Auto) 5.5 % 02/01/24 06:55 Eos % (Auto) 3.0 % 02/01/24 06:55 Baso % (Auto) 0.9 % 02/01/24 06:55 Neut # (Auto) 3.34 K/uL (1.40-6.50) 02/01/24 06:55 Lymph # (Auto) 1.73 K/uL (1.20-3.40) 02/01/24 06:55 [place] # (Auto) 0.31 K/uL (0.11-0.59) 02/01/24 06:55 Eos # (Auto) 0.17 K/uL (0.00-0.50) 02/01/24 06:55 Baso # (Auto) 0.05 K/uL (0.00-0.20) 02/01/24 06:55 Immature Gran # (Auto) 0.02 K/uL (0.01-0.20) 02/01/24 06:55 RBC Morphology Unremarkable 01/30/24 05:34 PT 10.9 Seconds (9.0-12.0) 01/29/24 16:00 INR 1.0 (0.9-1.1) 01/29/24 16:00 APTT 29 Seconds (21-31) 01/29/24 16:00 PTT Ratio 1.1 01/29/24 16:00 D-Dimer < 190 ug/L FEU (0-500) 01/31/24 05:49 Sodium 140 mmol/L (136-145) 02/01/24 06:55 Potassium 4.5 mmol/L (3.5-5.1) 02/01/24 06:55 Chloride 105 mmol/L (98-107) 02/01/24 06:55 Carbon Dioxide 29 mmol/L (21-32) 02/01/24 06:55 Anion Gap 6 (3-11) 02/01/24 06:55 BUN 17 mg/dl (6-23) 02/01/24 06:55 Creatinine 0.94 mg/dl (0.6-1.2) 02/01/24 06:55 Est Cr Clr Drug Dosing 68.4 ml/min 02/01/24 06:55 Est GFR ( Amer) 79.7 ml/min 02/01/24 06:55 Est GFR (Non-Af Amer) 68.8 ml/min 02/01/24 06:55 BUN/Creatinine Ratio 18.1 (10-20) 02/01/24 06:55 Glucose 105 mg/dl (70-99(Fasting)) H 02/01/24 06:55 POC Glucose 103 mg/dl (70-99) H 02/01/24 02:49 Estimat Average Glucose 128 mg/dl 01/30/24 05:34 Hemoglobin A1c 6.1 % (4.5-5.6) H 01/30/24 05:34 Calcium 9.3 mg/dl (8.6-10.3) 02/01/24 06:55 Magnesium 2.1 mg/dl (1.7-2.4) 01/31/24 05:49 Total Bilirubin 0.5 mg/dl (0.2-1.0) 01/29/24 16:00 AST 18 U/L (13-39) 01/29/24 16:00 ALT 15 U/L (7-52) 01/29/24 16:00 Alkaline Phosphatase 81 U/L (34-104) 01/29/24 16:00 Troponin I High Sens 4.3 pg/ml (0-14) 01/29/24 16:00 Total Protein 8.0 gm/dl (6.0-8.3) 01/29/24 16:00 Albumin 4.9 gm/dl (3.4-5.0) 01/29/24 16:00 Globulin 3.1 gm/dl (2.5-4.0) 01/29/24 16:00 Albumin/Globulin Ratio 1.6 (0.9-2) 01/29/24 16:00 Triglycerides 131 mg/dl (0-150) 01/30/24 05:34 Cholesterol 167 mg/dl (0-200) 01/30/24 05:34 LDL Cholesterol, Calc 104 mg/dl 01/30/24 05:34 VLDL Cholesterol, Calc 26 mg/dl (0-30) 01/30/24 05:34 HDL Cholesterol 37 mg/dl 01/30/24 05:34 Cholesterol/HDL Ratio 4.5 (0-5) 01/30/24 05:34 Urine Color Yellow 01/29/24 16:00 Urine Appearance Clear (Clear) 01/29/24 16:00 Urine pH 6.5 (4.5-7.5) 01/29/24 16:00 Ur Specific [place] 1.006 (1.000-1.030) 01/29/24 16:00 Urine Protein Negative (Negative) 01/29/24 16:00 Urine Glucose (UA) Negative (Negative) 01/29/24 16:00 Urine Ketones Negative (Negative) 01/29/24 16:00 Urine Blood Trace (Negative) H 01/29/24 16:00 Urine Nitrite Negative (Negative) 01/29/24 16:00 Urine Bilirubin Negative (Negative) 01/29/24 16:00 Urine Urobilinogen Negative (Negative) 01/29/24 16:00 Ur Leukocyte Esterase Negative (Negative) 01/29/24 16:00 Urine WBC (Auto) 0-5 /hpf (0-5) 01/29/24 16:00 Urine RBC (Auto) 0-2 /hpf (0-2) 01/29/24 16:00 U Hyaline Cast (Auto) 0-2 /lpf (0-2) 01/29/24 16:00 U Epithel Cells (Auto) 0-2 /hpf (0-2) 01/29/24 16:00 Urine Bacteria (Auto) None Seen (None Seen) 01/29/24 16:00 Lyme Disease Screen Negative (Negative) 01/29/24 16:[address] 01/29/24 16:[address] DOSE: HISTORY: Dizziness. neuro deficit, acute stroke suspected TECHNIQUE: Multiaxial CT images of the head were performed without the use of intravenous contrast. Automated exposure control was utilized for this study. A dose lowering technique was utilized adhering to the principles of ALARA. Comparison: Head CT 01/01/2024. Findings: Stable chronic right mastoid effusion. The paranasal sinuses and left mastoid air cells are clear. The calvarium and skull base are intact. The ventricles and sulci are within normal limits. There is no mass, hematoma, midline shift, or acute infarct. Impression: No acute intracranial abnormality. Stable chronic right mastoid effusion. ACT 112: Negative or not required by law. Electronically signed by: Zafar March M.D. 01/29/2024 6:02 PM Head CTA 01/29/24 16:24 HEAD & NECK CTA HISTORY: Dizziness neuro deficit, acute stroke suspected TECHNIQUE: Multiaxial CT images of the head were performed following the intravenous administration of contrast to evaluate the major cerebral vessels. Multiaxial CT images of the neck were also performed following the intravenous administration of contrast to evaluate the major cervical vessels. 3D/MIP images were also obtained. Sagittal and coronal reformats were reviewed. A dose lowering technique was utilized adhering to the principles of ALARA. COMPARISON: Head CT 01/29/2024. CT neck 10/08/2023. FINDINGS: There is no mass, hematoma, midline shift, or acute infarct. Visualized intracranial internal carotid arteries, distal vertebral arteries, and basilar artery are widely patent. There is no significant stenosis, occlusion, or aneurysm seen within the bilateral ACAs, MCAs, or fixing carpenter. . The major dural venous sinuses are patent. The aortic arch and proximal great vessels are widely patent. There is no significant stenosis, occlusion, or dissection identified within the bilateral common carotid, internal carotid, or vertebral arteries. Stable 4.8 cm cystic structure within the right superior mediastinum. IMPRESSION: 1. No significant stenosis, occlusion, or aneurysm within the [place]. 2. No significant stenosis, occlusion, or dissection identified within the carotid or vertebral arteries.. 3. Stable 4.8 cm cystic structure within the right superior mediastinum. ACT 112: Negative or not required by law. Electronically signed by: Zafar March M.D. 01/29/2024 6:10 PM Neck CTA 01/29/24 16:24 HEAD & NECK CTA HISTORY: Dizziness neuro deficit, acute stroke suspected TECHNIQUE: Multiaxial CT images of the head were performed following the intravenous administration of contrast to evaluate the major cerebral vessels. Multiaxial CT images of the neck were also performed following the intravenous administration of contrast to evaluate the major cervical vessels. 3D/MIP images were also obtained. Sagittal and coronal reformats were reviewed. A dose lowering technique was utilized adhering to the principles of ALARA. COMPARISON: Head CT 01/29/2024. CT neck 10/08/2023. FINDINGS: There is no mass, hematoma, midline shift, or acute infarct. Visualized intra cranial internal carotid arteries, distal vertebral arteries, and basilar artery are widely patent. There is no significant stenosis, occlusion, or aneurysm seen within the bilateral ACAs, MCAs, or fixing carpenter. . The major dural venous sinuses are patent. The aortic arch and proximal great vessels are widely patent. There is no significant stenosis, occlusion, or dissection identified within the bilateral common carotid, internal carotid, or vertebral arteries. Stable 4.8 cm cystic structure within the right superior mediastinum. IMPRESSION: 1. No significant stenosis, occlusion, or aneurysm within the [place]. 2. No significant stenosis, occlusion, or dissection identified within the carotid or vertebral arteries.. 3. Stable 4.8 cm cystic structure within the right superior mediastinum. ACT 112: Negative or not required by law. Electronically signed by: Zafar March M.D. 01/29/2024 6:10 PM Brain MRI 01/29/24 20:41 Exam(s): MRI HEAD Without Contrast EXAM: MR Head Without Intravenous Contrast CLINICAL HISTORY: dizziness. cva?. TECHNIQUE: Magnetic resonance images of the head/brain without intravenous contrast in multiple planes. COMPARISON: CT Brain 01-29-2024. FINDINGS: Brain: Age-appropriate central and peripheral atrophy. No acute stroke. No focal parenchymal abnormality. No acute hemorrhage. No abnormal extra-axial fluid collection. Minimal scattered supratentorial white matter subcortical and periventricular hyperintensities on FLAIR and T2-weighted images. Ventricles: No midline shift. No ventriculomegaly. Bones/joints: Unremarkable. No acute fracture. Sinuses: Unremarkable as visualized. No acute sinusitis. Mastoid air cells: Right mastoid fluid. Orbits: Unremarkable as visualized. IMPRESSION: No acute stroke or hemorrhage.. Minimal non-specific white matter changes, most commonly seen with small vessel disease. Redemonstrated right mastoid fluid. Electronically signed by: Kailash Griggs M.D. 01/30/24 01:15 AM Cervical Spine MRI 01/29/24 20:41 Exam(s): MRI C SPINE EXAM: MR Cervical Spine Without Intravenous Contrast CLINICAL HISTORY: severe neck pain. TECHNIQUE: Magnetic resonance images of the cervical spine without intravenous contrast in multiple planes. COMPARISON: CTA neck 01/29/2024. FINDINGS: Vertebrae: Maintenance of height of the vertebral bodies. No subluxation. Mild endplate hypertrophic changes at C5-6 with minimal marrow changes. Marrow signal intensity within normal limits. No evidence for fracture. Spinal cord: Caliber and signal intensity of the cervical cord within normal limits. No intraspinal hematoma or collection. Soft tissues: Prevertebral soft tissues are unremarkable. DISCS/SPINAL CANAL/NEURAL FORAMINA: C2-C3: Unremarkable. No significant disc disease. No stenosis. C3-C4: Unremarkable. No significant disc disease. No stenosis. C4-C5: Unremarkable. No significant disc disease. No stenosis. C5-C6: Mild central posterior disc bulge with mild effacement of the ventral thecal sac. Mild central canal stenosis. No neural foraminal stenosis. C6-C7: Mild diffuse posterior disc bulge with mild effacement of the ventral thecal sac with mild central canal stenosis. No neural foraminal stenosis. C7-T1: Unremarkable. No significant disc disease. No stenosis. IMPRESSION: Mild disc degenerative changes at C5-6 and C6-7 as described above. No neural foraminal stenosis. Electronically signed by: Kailash Griggs M.D. 01/30/24 01:19 AM Chest X-Ray 01/31/24 17:30 XR chest 1V portable HISTORY: 53 years-old Female s/p ppm ensure no PTX status post placement of a left subclavian pacer COMPARISON: 01/22/2024 TECHNIQUE: AP view of the chest FINDINGS: Cardiac silhouette is enlarged. Dual lead left subclavian pacer has been placed. No postprocedural pneumothorax identified. No pleural effusion or airspace consolidation. Bones appear grossly intact. IMPRESSION: No postprocedural pneumothorax. ACT 112: Negative or not required by law. The above report was generated using voice recognition software. It may contain grammatical, syntax or spelling errors. Electronically signed by: Chavo Allen M.D. 01/31/2024 6:01 PM Pending Results Patient Have Any Pending Studies at Discharge: No Discharge Instructions Given to Patient (Per Discharging Provider) Device and wound check at [facility] next week Total Time Total Time Spent Total Time Spent (In Minutes): Total time spent with discharge planning and care coordination was 40 minutes
--- NOTE | 2024-02-01 20:13 | Hospitalist Progress Note ---
Date of Service February 01, 2024 Assessment & Plan (1) Dizziness: Plan: In summation, 53-year-old female with past medical significant for bradycardia, mediastinal mass, GERD, colitis, chronic gastritis, squamous cell carcinoma face, neck pain, tobacco use, generalized anxiety disorder admitted with ongoing dizziness, weakness. Dizziness Presents with intermittent dizziness ongoing for several months Evaluated by outpatient neurology who recommended further workup to rule out CVA --Brain MRI:No acute stroke or hemorrhage. Minimal non-specific white matter changes, most commonly seen with small vessel disease. Redemonstrated right mastoid fluid. --Cervical MRI:Mild disc degenerative changes at C5-6 and C6-7 as described above. No neural foraminal stenosis. --Head/Neck CTA:No significant stenosis, occlusion, or aneurysm within the [place]. No significant stenosis, occlusion, or dissection identified within the carotid or vertebral arteries.Stable 4.8 cm cystic structure within the right superior mediastinum. --ECHO: Sinus bradycardia. Left ventricle is normal in size. Normal left ventricle wall thickness. Left ventricle wall motion normal. EF 60 to 65%. No significant valvular disease. Interatrial septum is intact. -- Check orthostatics Neurology consulted Possible vertigo situation. Will try meclizine Symptomatic sinus bradycardia TSH normal [place] screen negative Echo done Avoid AV iva blocking agents Cardiology consulted. PPM recommended Patient is status post permanent pacemaker on 01/30 Mediastinal cyst Incidental finding on CT Further workup as outpatient H/O Colitis Weight loss Planned for EGD and colonoscopy per GI Right mastoid effusion Likely chronic ENT consulted Gastritis Continue pantoprazole Anxiety on Diazepam as needed. Prediabetes HbA1c 6.1 Bell Attendant lifestyle changes Visual disturbance Chronic, intermittent associated with headache DD:? Complex migraine Imaging studies showed no acute CVA Will need follow-up with ophthalmology as outpatient Cervicalgia Chronic Likely due to degenerative disc disease Monitor DVT Px: Heparin SQ Tobacco use disorder Will start nicotine patches CODE STATUS Full code A total 51 minutes spent in the care of this patient Admission and Anticipated Discharge Date Admission Date: January 29, 2024 Subjective Patient was seen and examined, chart, medications, telemetry reviewed. She is postop day #1 pacemaker insertion No fevers or chills. Pacemaker functioning appropriately on telemetry Overall she feels like she has more energy since the pacemaker insertion Patient still feels lightheaded like she has vertigo. It is worse on the left side. She also wonders if she could be having nicotine withdrawal she is a smoker. Review of Systems Review of Systems: Constitutional- no fever; no chills Eyes- no acute visual changes ENT- no sinus drainage; no pharyngitis. She feels fullness in her left ear Pulmonary- no cough, no wheezing, no shortness of breath Cardiac- no chest pain, no palpitations, no orthopnea, no dependent edema GI- no nausea, no vomiting, no diarrhea, no melena, no hematochezia - no dysuria, no hematuria Musculoskeletal- no arthralgias, no myalgias Derm- no rashes, no new skin lesions, no changing skin lesions Hematologic- no unusual bruising, no unusual bleeding Lymphatics- no adenopathy Endocrine- no polyuria or polydipsia; no heat or cold intolerance Neuro- no headaches, no focal neurologic symptoms Psych- no anxiety, no depression Physical Exam Physical Exam: General- adult well-developed and well-nourished female sitting in bed Head- atraumatic Eyes- PERRL, EOMI, anicteric ENT- oropharynx clear, TMs and ear canals are clear Neck- supple, no JVD, no adenopathy, no thyromegaly; carotids +2/2, no bruits appreciated Lungs- clear to auscultation and percussion Heart- regular rhythm; no murmur, no gallop, no rub appreciated Abdomen- normal bowel sounds, soft, nontender, no masses or hepatosplenomegaly Extremities- no pretibial edema, no calf tenderness; peripheral pulses intact Neuro- alert, oriented x 3; PERRL, EOMI; no focal deficit Skin- warm & dry Results & Data Results & Data Vital Signs (Past 12 Hours) Vital Signs Temp Pulse Pulse Resp BP BP Pulse Ox 02/01/24 19:05 36.4 C L 60 18 130/85 98 02/01/24 16:25 36.6 C 59 L 18 137/88 96 02/01/24 10:42 36.4 C L 60 20 121/81 96 02/01/24 08:32 36.4 C L 60 18 117/76 98 O2 Del Method 02/01/24 19:05 Room Air 02/01/24 16:25 Room Air 02/01/24 10:42 Room Air 02/01/24 08:32 Room Air Diagnostic Findings Laboratory Results WBC 5.62 K/ul (4.8-10.8) 02/01/24 06:55 RBC 4.89 M/uL (4.20-5.40) 02/01/24 06:55 Hgb 15.0 g/dl (12.0-16.0) 02/01/24 06:55 Hct 44.5 % (37.0-47.0) 02/01/24 06:55 MCV 91.0 fL (80.0-100.0) 02/01/24 06:55 MCH 30.7 pg (25.0-34.0) 02/01/24 06:55 MCHC 33.7 g/dL (32.0-36.0) 02/01/24 06:55 RDW Std Deviation 43.7 fL (36.4-46.3) 02/01/24 06:55 RDW Coeff of Rosita 13.0 % (11.5-14.5) 02/01/24 06:55 Plt Count 278 K/uL (130-400) 02/01/24 06:55 MPV 10.7 fL (9.4-12.4) 02/01/24 06:55 Immature Gran % (Auto) 0.4 % 02/01/24 06:55 Neut % (Auto) 59.4 % 02/01/24 06:55 Lymph % (Auto) 30.8 % 02/01/24 06:55 [place] % (Auto) 5.5 % 02/01/24 06:55 Eos % (Auto) 3.0 % 02/01/24 06:55 Baso % (Auto) 0.9 % 02/01/24 06:55 Neut # (Auto) 3.34 K/uL (1.40-6.50) 02/01/24 06:55 Lymph # (Auto) 1.73 K/uL (1.20-3.40) 02/01/24 06:55 Chaves # (Auto) 0.31 K/uL (0.11-0.59) 02/01/24 06:55 Eos # (Auto) 0.17 K/uL (0.00-0.50) 02/01/24 06:55 Baso # (Auto) 0.05 K/uL (0.00-0.20) 02/01/24 06:55 Immature Gran # (Auto) 0.02 K/uL (0.01-0.20) 02/01/24 06:55 RBC Morphology Unremarkable 01/30/24 05:34 PT 10.9 Seconds (9.0-12.0) 01/29/24 16:00 INR 1.0 (0.9-1.1) 01/29/24 16:00 APTT 29 Seconds (21-31) 01/29/24 16:00 PTT Ratio 1.1 01/29/24 16:00 D-Dimer < 190 ug/L FEU (0-500) 01/31/24 05:49 Sodium 140 mmol/L (136-145) 02/01/24 06:55 Potassium 4.5 mmol/L (3.5-5.1) 02/01/24 06:55 Chloride 105 mmol/L (98-107) 02/01/24 06:55 Carbon Dioxide 29 mmol/L (21-32) 02/01/24 06:55 Anion Gap 6 (3-11) 02/01/24 06:55 BUN 17 mg/dl (6-23) 02/01/24 06:55 Creatinine 0.94 mg/dl (0.6-1.2) 02/01/24 06:55 Est Cr Clr Drug Dosing 68.4 ml/min 02/01/24 06:55 Est GFR ( Amer) 79.7 ml/min 02/01/24 06:55 Est GFR (Non-Af Amer) 68.8 ml/min 02/01/24 06:55 BUN/Creatinine Ratio 18.1 (10-20) 02/01/24 06:55 Glucose 105 mg/dl (70-99(Fasting)) H 02/01/24 06:55 POC Glucose 103 mg/dl (70-99) H 02/01/24 02:49 Estimat Average Glucose 128 mg/dl 01/30/24 05:34 Hemoglobin A1c 6.1 % (4.5-5.6) H 01/30/24 05:34 Calcium 9.3 mg/dl (8.6-10.3) 02/01/24 06:55 Magnesium 2.1 mg/dl (1.7-2.4) 01/31/24 05:49 Total Bilirubin 0.5 mg/dl (0.2-1.0) 01/29/24 16:00 AST 18 U/L (13-39) 01/29/24 16:00 ALT 15 U/L (7-52) 01/29/24 16:00 Alkaline Phosphatase 81 U/L (34-104) 01/29/24 16:00 Troponin I High Sens 4.3 pg/ml (0-14) 01/29/24 16:00 Total Protein 8.0 gm/dl (6.0-8.3) 01/29/24 16:00 Albumin 4.9 gm/dl (3.4-5.0) 01/29/24 16:00 Globulin 3.1 gm/dl (2.5-4.0) 01/29/24 16:00 Albumin/Globulin Ratio 1.6 (0.9-2) 01/29/24 16:00 Triglycerides 131 mg/dl (0-150) 01/30/24 05:34 Cholesterol 167 mg/dl (0-200) 01/30/24 05:34 LDL Cholesterol, Calc 104 mg/dl 01/30/24 05:34 VLDL Cholesterol, Calc 26 mg/dl (0-30) 01/30/24 05:34 HDL Cholesterol 37 mg/dl 01/30/24 05:34 Cholesterol/HDL Ratio 4.5 (0-5) 01/30/24 05:34 Homocysteine 13.4 umol/L (<10.4) H 01/31/24 05:49 Urine Color Yellow 01/29/24 16:00 Urine Appearance Clear (Clear) 01/29/24 16:00 Urine pH 6.5 (4.5-7.5) 01/29/24 16:00 Ur Specific [place] 1.006 (1.000-1.030) 01/29/24 16:00 Urine Protein Negative (Negative) 01/29/24 16:00 Urine Glucose (UA) Negative (Negative) 01/29/24 16:00 Urine Ketones Negative (Negative) 01/29/24 16:00 Urine Blood Trace (Negative) H 01/29/24 16:00 Urine Nitrite Negative (Negative) 01/29/24 16:00 Urine Bilirubin Negative (Negative) 01/29/24 16:00 Urine Urobilinogen Negative (Negative) 01/29/24 16:00 Ur Leukocyte Esterase Negative (Negative) 01/29/24 16:00 Urine WBC (Auto) 0-5 /hpf (0-5) 01/29/24 16:00 Urine RBC (Auto) 0-2 /hpf (0-2) 01/29/24 16:00 U Hyaline Cast (Auto) 0-2 /lpf (0-2) 01/29/24 16:00 U Epithel Cells (Auto) 0-2 /hpf (0-2) 01/29/24 16:00 Urine Bacteria (Auto) None Seen (None Seen) 01/29/24 16:00 Lyme Disease Screen Negative (Negative) 01/29/24 16:00
[2024-02-01] MEDS: NICOTINE 21 MG/24 HR TDSY TD SCH (20:17)
[2024-02-01] MEDS: MECLIZINE HCL 25 MG TAB PO SCH (20:18)
[2024-02-01] MEDS: diazePAM 5 MG TABLET PO PRN (22:14)
[2024-02-02 03:29] VITALS: RESP 18
[2024-02-02 07:20] LABS: Hemoglobin 16.1 g/dl (12.0-16.0); Mean Corpuscular Hemoglobin 30.5 pg (25.0-34.0); Mean Corpuscular Hgb Conc 32.9 g/dL (32.0-36.0); Mean Corpuscular Volume 92.8 fL (80.0-100.0); Mean Platelet Volume 10.3 fL (9.4-12.4); Platelet Count 277 K/uL (130-400); RDW Coefficient of Variation 13.2 % (11.5-14.5); RDW Standard Deviation 45.1 fL (36.4-46.3); Red Blood Count 5.28 M/uL (4.20-5.40); White Blood Count 6.62 K/ul (4.8-10.8)
[2024-02-02 07:37] LABS: BUN Creatinine Ratio 13.5 (10-20); Calcium 9.6 mg/dl (8.6-10.3); Creatinine Clr Calc Pharmacy 67.5 ml/min; Est GFR (African American) 77.7 ml/min; Potassium 4.1 mmol/L (3.5-5.1)
[2024-02-02] MEDS ORDERED: NICOTINE 21 MG/24 HR TDSY TD SCH (09:00)
[2024-02-02 11:44] VITALS: BP 109/78; PULSE 62; TEMP 97.9; O2SAT 97
--- NOTE | 2024-02-14 14:13 | Operative Report ---
Post Operative Report DICTATED BY:Sommer Santana D.O. DATE OF PROCEDURE: 01/31/2024. PREOPERATIVE DIAGNOSES: SSS POSTOPERATIVE DIAGNOSIS: Same PROCEDURE: A dual-chamber rate responsive permanent pacemaker, along with a peripheral venogram under fluoroscopic guidance. SURGEON: Sommer Santana DO ASSISTANTS: None. ANESTHESIA: Monitored conscious sedation administered under my supervision by Edwin Rosales. Start time 14:41, end time 15:39, a total of 5 mg of Versed and 125 mcg of fentanyl. INTRAVENOUS FLUIDS: 65 mL. CONTRAST: 12 mL. ANTIBIOTICS: 1 grams of Ancef. ADDITIONAL MEDICATIONS: none BLOOD LOSS: 60 mL. URINE OUTPUT: Not applicable. SPECIMENS: None. FINDINGS: See below. DRAINS: None. COMPLICATIONS: None. CONDITION: Stable. INDICATIONS: This is a 53-year-old female who has a past medical history Bradycardia, mediastinal mass, GERD, colitis, chronic gastritis, squamous cell carcinoma face, neck pain, tobacco use, generalized anxiety disorder. She is having worsening SSS and was admitted to [facility] and she was recommended prior to hospital discharge. CONSENT: Consent was obtained prior to the patient going into the electrophysiology lab. The patient was informed of the risks, benefits, and alternatives to the procedure. Risks include, but not limited to, sudden cardiac , cardiac arrhythmias, cerebrovascular accident, myocardial infarction, injury to his blood vessels, chamber of the heart and lung, bleeding and infection. The patient understood these risks and agreed to the procedure as planned. Informed consent was obtained. DESCRIPTION OF PROCEDURE: The patient was brought into electrophysiology lab in a fasting state. She was connected to continuous cardiac monitoring. A timeout was performed to ensure the patient's identity and procedure correctly. She was prepped and draped in the left infraclavicular space in normal surgical standard fashion. Monitored conscious sedation was given throughout the procedure for the patient's comfort level. [place] precautions were maintained throughout the procedure. Prophylactic antibiotics were given prior to incision. A 20 mL of 1% lidocaine and bupivacaine mixture were given in the left deltopectoral groove. An incision was made in the left deltopectoral groove. Blunt dissection was performed down to the pectoralis muscle. Then, using blunt dissection over the pectoralis muscle within the pectoral fascia, a pacemaker pocket was created. Then, a peripheral venogram was performed to identify the axillary vein. Venous axillary access was obtained through a needlestick without any problems. A guidewire was inserted without any resistance. A 6- [place] sheath was inserted over the guidewire without any resistance. Dilator was removed and a second guidewire was inserted through the sheath to allow for retained venous access. Then a 9 [place] sheath was inserted over one of the guidewires. The guidewire and dilator were removed. Then, the [employer] 3D medium sheath was inserted through the 9-Jordanian sheath over a Glidewire into the right ventricle. The Glidewire and dilator were removed. Then, the left bundle lead was advanced through the sheath and intracardiac electrogram His bundle area was estimated when the camera was in GUERRA 10. Once I had an idea where the His bundle area was, I then moved the camera to GUERRA 30 and marked where the His bundle was on my fluoroscopy screen. I came down about 2 cm from this in a line that would extend out to the apex and then started coming on pacing. Once I found an area where I had a nice W formed pace complex in my lead V1, I then moved the camera to JUN 30. Then the helix was extended into the septum. Then the helix locking tool was placed. Then the lead was screwed further into the septum while pacing by giving slow clockwise turns. The paced complex changed to a nice R' in V1 and the pacing stim to peak QRS in V6 was good. Of note I did have to reposition it one time. I then gave contrast through the sheath to see how far the lead was into the septum and then I slit the [employer] 3D medium sheath under fluoroscopic guidance and left the 9-[place]ian sheath in while I positioned the right atrial lead. A 6-[place] sheath was inserted over the retained guidewire, the guidewire and dilator removed. The right atrial lead was then advanced into right atrium and positioned into right atrial appendage under fluoroscopic guidance. There was adequate pacing and sensing thresholds and no diaphragmatic stimulation with high output pacing. The 6-[place] sheath was peeled away and the lead was fixated to the pectoralis muscle using 0 silk suture. The 9-[place]ian sheath around the left bundle lead was peeled away and the lead was fixated to pectoralis muscle using 0 silk suture. The pocket was flushed with copious amounts of vancomycin and saline wash and inspected for hemostasis. The leads were then attached to the pulse generator making sure the pins were in appropriate position, passed set screws, and set screws were all tightened. Pulse generator was then placed in the antibiotic pouch followed then by being placed in the pocket, making sure the leads were lying flat beneath the device. The incision was closed in a 3-layer fashion using 2-0 Vicryl interrupted suture, followed by 3-0 Vicryl interrupted suture, followed by 4-0 Monocryl running stitch. Then a primaseal dressing was placed EQUIPMENT: 1. Pulse generator is a [employer] MRI Model Number [id number] SN: [id number] 2. Right atrial lead, Chopra SJM Tendril STS 8TC SN: [id number] 3. Left bundle lead, Chopra SJM Tendril STS 8TC SN: [id number] INTRAPROCEDURAL FINDINGS: 1. Right atrial lead, P waves 5.3 millivolts, impedance 625 ohms, threshold 0.8 volts at 0.4 milliseconds. 3. Left bundle lead, R waves11.4 millivolts, impedance 740 ohms, threshold 0.8 volts at 0.4 milliseconds. FINAL MEASUREMENTS THROUGH THE DEVICE: 1. Right atrial lead, P waves > 5millivolts, impedance 590 ohms, threshold 0.5 volt at 0.4 milliseconds. 2. Left bundle lead, R waves 5.8 millivolts, impedance 600 ohms, threshold 1 volts at 0.4 milliseconds. FINAL PARAMETERS: DDDR 60/130, right atrial amplitude 3.5 volts, pulse width 0.4 milliseconds, sensitivity 0.5 millivolts. Left bundle lead amplitude 3.5 volts, pulse width 0.4 milliseconds, sensitivity 2 millivolts. IMPRESSION: Successful dual chamber rate responsive permanent pacemaker under fluoroscopic guidance along with peripheral venogram all under fluoroscopic guidance secondary to SSS PLAN: Monitor the patient post-procedure. A 12-lead ECG, chest x-ray. She is not to lift the left elbow or left shoulder for 1 month. She cannot lift more than 10 pounds with the left arm for 2 weeks. She is to keep the dressing on and dry until her wound check next week.
== END 2024-02-02 14:05 | disposition home or self-care (01) | DRG 244 ==
LOC: ED 15:37 → SUATTDRO 19:17 → 2S 19:17